=== PATIENT | male | born 1950 | race Caucasian/White ===

== ENCOUNTER 2017-11-11 12:19 | Emergency (ER) | payer MEDICARE, BC ==
[~2017-11-11] VITALS: Ht 177.8 cm; Wt 127.0 kg
[~2017-11-11 12:19] MED LIST: ADVIL PM LIQUI1 EACH PO; ADVIL200 MG NG; ALLOPURINOL100 MG PO; AMOX TR-K CLV1 EAC1 PO; BUTALB-ACETAMI1 EACH PO; GLUCOPHAGE500 MG PO; LISINOPRIL20 MG PO; MELOXICAM15 MG PO; NORVASC10 MG PO; PERCOCET 5-3251 EACH PO; PRILOSEC20 MG PO; TOPROL XL50 MG PO; UNITHROID175 MCG PO; VICODIN 5-3001 EACH PO; VICOPROFEN 2001 EACH PO; VITAMINS
--- OUTSIDE RECORDS SUMMARY | 2017-11-11 14:03 | XMS | Clinical Summary ---
Demographics + + + | Address | [address] | | | [place] [address] | + + + | Home Phone | | + + + | Preferred Language | Unknown | + + + | Marital Status | | + + + | Episcopalian Affiliation | CHR | + + + | Race | White | + + + | Ethnic Group | Not or | + + + Author + + + | Author | [facility] | + + + | Organization | [facility] | + + + | Address | Unknown | + + + | Phone | Unavailable | + + + Support +------+ +---------+ + | Name | Relationship | Address | Phone | +------+ +---------+ + ECON | Unknown | | +------+ +---------+ + Care Team Providers + +------+ + | Care Treating Machine Operator Name | Role | Phone | + +------+ + | Peter Styles MD | PP | | + +------+ + Source Comments HARLEY is fully live on both [facility] Ambulatory and [facility] InPatient.[facility] Allergies + + + + + + | Active Allergy | Reactions | Severity | Noted | Comments | | | | | Date | | + + + + + + | Codeine | Nausea/Vomiting | | 12/01/19 | | | | | | 08 | | + + + + + + | Hydrocodone-Acetamin | Headache | | 12/01/19 | | | ophen | | | 08 | | + + + + + + Current Medications + + +-------+---------+------+------+-------+ | Prescription | Sig. | Disp. | Refills | Star | End | Statu | | | | | | t | Date | s | | | | | | Date | | | + + +-------+---------+------+------+-------+ | levothyroxine 175 | take 1 tablet (175 | | | | | Activ | | mcg Oral Tablet | mcg) by oral route | | | | | e | | | once daily | | | | | | + + +-------+---------+------+------+-------+ | allopurinol 300 mg | take 1 tablet (300 | | | | | Activ | | Oral Tablet | mg) by oral route | | | | | e | | | once daily | | | | | | + + +-------+---------+------+------+-------+ | oxycodone | PRN | | | | | Activ | | (immediate release) | | | | | | e | | 5 mg Oral Tablet | | | | | | | + + +-------+---------+------+------+-------+ | | PRN | | | | | Activ | | hydrocodone-ibuprofe | | | | | | e | | n (VICOPROFEN) | | | | | | | | 7.5-200 mg Oral | | | | | | | | Tablet | | | | | | | + + +-------+---------+------+------+-------+ | Aspirin 81 mg Oral | 1 tab po qday | | | | | Activ | | Tablet | | | | | | e | + + +-------+---------+------+------+-------+ | lovastatin 40 mg | take 1 tablet (40 | | | | | Activ | | Oral Tablet | mg) by oral route | | | | | e | | | once daily with | | | | | | | | evening meal | | | | | | + + +-------+---------+------+------+-------+ Active Problems Not on file Family History + + +------+ + | Medical History | Relation | Name | Comments | + + +------+ + | Arthritis | Father | | | + + +------+ + | Heart Disease | Father | | | + + +------+ + | Stroke | Father | | | + + +------+ + | Arthritis | Mother | | | + + +------+ + | Diabetes | Mother | | | + + +------+ + + +------+--------+ + | Relation | Name | Status | Comments | + +------+--------+ + | Father | | | | + +------+--------+ + | Mother | | | | + +------+--------+ + Social History + +-------+ +--------+------+ | Tobacco Use | Types | Packs/Day | Years | Date | | | | | Used | | + +-------+ +--------+------+ | Never Smoker | | | | | + +-------+ +--------+------+ + + +---------+ + | Alcohol Use | Drinks/We | oz/Week | Comments | | | ek | | | + + +---------+ + | No | | | | + + +---------+ + + + + | Sex Assigned at | Date Recorded | | | | + + + | Not on file | | + + + Last Filed Vital Signs + + + + | Vital Sign | Reading | Time Taken | + + + + | Blood Pressure | - | - | + + + + | Pulse | 88 | 12/01/2007 1:10 PM PST | + + + + | Temperature | - | - | + + + + | Respiratory Rate | - | - | + + + + | Oxygen Saturation | - | - | + + + + | Inhaled Oxygen | - | - | | Concentration | | | + + + + | Weight | 124.7 kg (275 lb) | 12/01/2007 1:10 PM PST | + + + + | Height | 177.8 cm (5' 10") | 12/01/2007 1:10 PM PST | + + + + | Body Mass Index | 39.46 | 12/01/2007 1:10 PM PST | + + + + Plan of Treatment + + + + + | Health Maintenance | Due Date | Last Done | Comments | + + + + + | INFLUENZA VACCINE | | | | | (FLU SHOT) | 7 | | | + + + + + Results Not on filefrom Last 3 Months
--- OUTSIDE RECORDS SUMMARY | 2017-11-11 14:04 | XMS | Clinical Summary ---
Demographics + + + | Address | [address] | | | [place] [address] | + + + | Home Phone | | + + + | Preferred Language | Unknown | + + + | Marital Status | | + + + | Shinto Affiliation | CHR | + + + [...] Team Providers + +------+ + | Care Dental Intern Name | Role | Phone | + +------+ + | Peter Styles MD | PP | | + +------+ + Source Comments HARLEY is fully live on both [facility] Ambulatory and [facility] InPatient.[facility] Allergies + + + + + [...]
--- NOTE | 2017-11-11 23:12 | EKG ---
[facility] [address] [facility] [place] [address] Signed Atrial-paced rhythm with prolonged AV conduction Left anterior fascicular block Left ventricular hypertrophy with QRS widening Cannot rule out Septal infarct (cited on or before 28-OCT-2017) Abnormal ECG When compared with ECG of 28-OCT-2017 12:15, Electronic atrial pacemaker has replaced Sinus rhythm Questionable change in initial forces of Septal leads Confirmed by YANA MCCAULEY MD ([id number]) on 11/11/2017 11:11:55 PM Electronically Signed By: YANA MCCAULEY MD 11/11/17 2312 PATIENT NAME: BECKIE GARDNER Electrocardiogram DATE OF : 48 PHYSICIAN: YANA MCCAULEY MD REPORT #: [id number] REPORT IS CONFIDENTIAL AND NOT TO BE RELEASED WITHOUT AUTHORIZATION
== END 2017-11-11 14:50 | disposition home or self-care (01) ==
LOC: ED 12:19
DX: R00.2 Palpitations (principal); I10 Essential (primary) hypertension; Z95.0 Presence of cardiac pacemaker; Z88.5 Allergy status to narcotic agent; Z79.899 Other long term (current) drug therapy
CPT/HCPCS: 80053; 84484; 85025; 93005; 93010; 99284

== ENCOUNTER 2018-03-10 12:16 | Emergency (ER) | payer MEDICARE, BC ==
[~2018-03-10] VITALS: Ht 177.8 cm; Wt 127.0 kg
--- NOTE | 2018-03-12 10:59 | EKG ---
[facility] [address] [facility] [place] [address] Signed Sinus rhythm with 1st degree AV block Left ventricular hypertrophy with QRS widening Abnormal ECG When compared with ECG of 11-NOV-2017 12:32, Sinus rhythm has replaced Electronic atrial pacemaker Minimal criteria for Septal infarct are no longer present Confirmed by BRIDGETT CANSECO MD ([id number]) on 03/12/2018 10:59:36 AM Electronically Signed By: BRIDGETT CANSECO MD 03/12/18 1059 PATIENT NAME: BECKIE GARDNER Electrocardiogram DATE OF : 48 PHYSICIAN: BRIDGETT CANSECO MD REPORT #: [id number] REPORT IS CONFIDENTIAL AND NOT TO BE RELEASED WITHOUT AUTHORIZATION
== END 2018-03-10 17:13 | disposition home or self-care (01) ==
LOC: ED 12:16
DX: R42 Dizziness and giddiness (principal); I10 Essential (primary) hypertension; Z88.5 Allergy status to narcotic agent; Z79.899 Other long term (current) drug therapy; Z79.84 Long term (current) use of oral hypoglycemic drugs
CPT/HCPCS: 70450; 71045; 80053; 81001; 83880; 84484; 85025; 93005; 93010; 96360; 96361; 99284; J7030

== ENCOUNTER 2019-05-30 12:08 | Emergency (ER) | payer MEDICARE, BC ==
[~2019-05-30] VITALS: Ht 177.8 cm; Wt 122.5 kg
[2019-05-30] MEDS ORDERED: GLIPIZIDE ER5 MG PO (12:27)
[2019-05-30] MEDS ORDERED: OMEGA 3 1,0001 EACH PO (19:52)
== END 2019-05-31 13:25 ==
LOC: ED 12:08
DX: T14.91XA Suicide attempt, initial encounter (principal); I10 Essential (primary) hypertension; E11.9 Type 2 diabetes mellitus without complications; Z95.0 Presence of cardiac pacemaker; Z87.891 Personal history of nicotine dependence; Z88.5 Allergy status to narcotic agent; Z79.84 Long term (current) use of oral hypoglycemic drugs; Z79.899 Other long term (current) drug therapy
CPT/HCPCS: 70450; 80053; 80176; 81001; 84443; 85025; 94660; 99285-25; G0480

== ENCOUNTER 2020-01-16 17:07 | Emergency (ER) | payer MEDICARE, BC ==
[~2020-01-16] VITALS: Ht 177.8 cm; Wt 122.5 kg
[~2020-01-16 17:07] MED LIST changes: +GLIPIZIDE ER5 MG PO; +OMEGA 3 1,0001 EACH PO
--- OUTSIDE RECORDS SUMMARY | 2020-01-16 17:10 | XMS ---
PreManage Notification: BECKIE GARDNER Security Heel Lift Gouger Events No recent Security Events currently on file CRITERIA MET - Group Notification CARE PROVIDERS Nery DUMONT Internal Medicine Current PHONE: Unknown DAYRON POP Internal Medicine 06/03/2019-Current PHONE: Unknown Cristine has no Care Guidelines for this patient. Robin VISIT COUNT (12 MO.) 2 [facility] TOTAL 2 NOTE: Visits indicate total known visits. ED/UCC VISIT TRACKING (12 MO.) 01/16/2020 17:09 [facility] [place] TYPE: Emergency COMPLAINT: - PAIN IN BACK 05/30/2019 12:08 [facility] [place] TYPE: Emergency COMPLAINT: - MEDICAL CLEARANCE DIAGNOSES: - Personal history of nicotine dependence - Presence of cardiac pacemaker - group home (current) use of oral hypoglycemic drugs - Type 2 diabetes mellitus without complications - Suicide attempt, initial encounter - Other airline transport pilot (current) drug therapy - Suicidal ideations - Essential (primary) hypertension - Allergy status to narcotic agent status INPATIENT VISIT TRACKING (12 MO.) No inpatient visits to display in this time frame [email or web address]
--- NOTE | 2020-01-17 07:15 | EKG ---
[facility] [address] [facility] [place] [address] Signed Sinus rhythm with 1st degree AV block Left axis deviation Septal infarct , age undetermined Abnormal ECG When compared with ECG of 10-MAR-2018 12:31, Nonspecific T wave abnormality no longer evident in Inferior leads Confirmed by YANA MCCAULEY MD ([id number]) on 01/17/2020 7:15:18 AM Electronically Signed By: YANA MCCAULEY MD 01/17/20 0715 PATIENT NAME: BECKIE GARDNER Electrocardiogram DATE OF : 48 PHYSICIAN: YANA MCCAULEY MD REPORT #: [id number] REPORT IS CONFIDENTIAL AND NOT TO BE RELEASED WITHOUT AUTHORIZATION
== END 2020-01-16 19:32 | disposition home or self-care (01) ==
LOC: ED 17:07
DX: K85.90 Acute pancreatitis without necrosis or infection, unspecified (principal); I10 Essential (primary) hypertension; E11.9 Type 2 diabetes mellitus without complications; Z87.891 Personal history of nicotine dependence; Z79.899 Other long term (current) drug therapy
CPT/HCPCS: 74177; 80053; 81001; 83690; 85025; 93005; 93010; 99284-25; J2270

== ENCOUNTER 2022-06-05 15:01 | Emergency (ER) | payer MEDICARE, OTHER ==
[~2022-06-05] VITALS: Ht 177.8 cm; Wt 119.2 kg
--- OUTSIDE RECORDS SUMMARY | 2022-06-05 15:08 | XMS ---
PreManage Notification: BECKIE GARDNER Security Tuck Pointer Events No recent Security Events currently on file CRITERIA MET - Group Notification CARE PROVIDERS Nery DUMONT Internal Medicine Current PHONE: Unknown DAYRON POP Internal Medicine 06/03/2019-Current PHONE: Unknown Cristine has no Care Guidelines for this patient. Care History Medical/Surgical 01/17/2020 [facility] - Patient is currently established with [facility]. If patient is seen in the ED during business hours. Please contact CHWs at [facility]. Care Recommendation: If this patient has had 5 or more Emergency Department visits in the last 12 months.\T\nbsp; Patient will require education on the scope and purpose of the ED as an acute care provider not a Primary Care Provider and should not be utilized for chronic conditions.\T\nbsp; These are guidelines and the provider should exercise clinical judgment when providing care. E.D. VISIT COUNT (12 MO.) 1 [facility] TOTAL 1 NOTE: Visits indicate total known visits. ED/UCC VISIT TRACKING (12 MO.) 06/05/2022 15:01 [facility] [place] TYPE: Emergency COMPLAINT: - BEE STING INPATIENT VISIT TRACKING (12 MO.) No inpatient visits to display in this time frame [id number]
[2022-06-05] MEDS ORDERED: EPIN0.3P IM (15:22)
[2022-06-05] MEDS ORDERED: PREDNISONE20 MG PO (16:02)
[2022-06-05] MEDS ORDERED: EPIN0.3P INJ (16:02)
[2022-06-05] MEDS ORDERED: BENADRYL ALLERG25 MG PO (16:02)
== END 2022-06-05 15:58 | disposition home or self-care (01) ==
LOC: ED 15:01
DX: T63.441A Toxic effect of venom of bees, accidental (unintentional), initial encounter (principal); I10 Essential (primary) hypertension; E11.9 Type 2 diabetes mellitus without complications; M10.9 Gout, unspecified; Z88.5 Allergy status to narcotic agent; Z88.6 Allergy status to analgesic agent; Z79.899 Other long term (current) drug therapy; Z79.84 Long term (current) use of oral hypoglycemic drugs
CPT/HCPCS: 99282

== ENCOUNTER 2023-08-03 12:14 | Emergency (ER) | payer MEDICARE, OTHER ==
[~2023-08-03] VITALS: Ht 177.8 cm; Wt 100.2 kg
[~2023-08-03 12:14] MED LIST changes: +ADVIL PM CAPLE1 EACH PO; +ALPHA LIPOIC A100 MG PO; +BENADRYL ALLERG25 MG PO; +CEFDINIR300 MG PO; +COLCHICINE0.6 M1 PO; +CRESTOR40 MG NG; +CYCLOBENZAPRINE10 MG PO; +ELIQUIS5 MG PO; +EPIN0.3P IM; +EPIN0.3P INJ; +EZETIMIBE10 MG PO; +FEROSUL325 MG PO; +FLOMAX0.4 MG PO; +FUROSEMIDE40 MG PO; +GLIPIZIDE5 MG PO; +MAG-OXIDE400 MG PO; +METOPROLOL SUCC50 MG PO; +NITROGLYCERIN0.4 MG SL; +OXYCODONE HCL5 MG PO; +PACERONE400 MG PO; +POTASSIUM CHLO20 ME1 PO; +PREDNISONE20 MG PO; +PRILOSEC OTC20 MG PO; +ROSUVASTATIN CAL5 MG PO; +SILDENAFIL20 MG PO; +VAZALORE81 MG PO; +VIT C-ROSE HIP500 MG PO; +VITAMIN D310 MC4 PO; +WEGOVY1 MG/0.5 M SQ; +[UNRECOGNIZED DRUG - OTHER] PO
--- OUTSIDE RECORDS SUMMARY | 2023-08-03 12:16 | XMS ---
PreManage Notification: BECKIE GARDNER Security Green Tire Inspector Events No recent Security Events currently on file CRITERIA MET - 6 ED Visits in 6 Months - Group Notification - [facility] - 2 Visits in 30 Days - [facility] - 3 Facilities in 90 Days CARE PROVIDERS DAYRON POP Internal Medicine 06/03/2019-Current PHONE: Unknown [facility] [employer] \F\ [facility] PHONE: [phone] Nery DUMONT Internal Medicine Current PHONE: Unknown ISAMAR RUELAS Internal Medicine Current PHONE: [phone] Cristine has no Care Guidelines for this patient. Care History Medical/Surgical 01/17/2020 [facility] - Patient is currently established with [facility]. If patient is seen in the ED during business hours. Please contact CHWs at [facility]. Care Recommendation: If this patient has had [...] providing care. E.D. VISIT COUNT (12 MO.) 6 [facility] 2 [facility] TOTAL 9 NOTE: Visits indicate total known visits. ED/UCC VISIT TRACKING (12 MO.) 08/03/2023 12:15 [facility] [place] TYPE: Emergency COMPLAINT: - URINE PROBLEM 07/26/2023 13:11 [facility] [place] TYPE: Emergency COMPLAINT: - UTI DIAGNOSES: - Allergy status to narcotic agent - Bee allergy status - Essential (primary) hypertension - Exposure to other specified factors, initial encounter - Hormone replacement therapy - terminal make up operator (current) use of aspirin - Personal history of transient ischemic attack (TIA), and cerebral infarction without residual deficits - Presence of aortocoronary bypass graft - Presence of cardiac pacemaker - Sprain of unspecified ligament of unspecified ankle, initial encounter - Type 2 diabetes mellitus without complications - Urgency of urination - Urinary tract infection, site not specified 06/22/2023 06:38 [facility] [place] TYPE: Emergency COMPLAINT: - WEAKNESS DIAGNOSES: - Abnormal weight gain - Allergy status to narcotic agent - Allergy status to other drugs, medicaments and biological substances - Bee allergy status - Contact with and (suspected) exposure to COVID-19 - Elevated blood-pressure reading, without diagnosis of hypertension - Essential (primary) hypertension - Hormone replacement therapy - senior care (current) use of aspirin - terminal make up operator (current) use of oral hypoglycemic drugs - Nausea with vomiting, unspecified - Other halfway (current) drug therapy - Personal history of transient ischemic attack (TIA), and cerebral infarction without residual deficits - Presence of cardiac pacemaker - Type 2 diabetes mellitus without complications - Unspecified kidney failure [facility]17[facility]2023 15[facility]: Emergency DIAGNOSES: - Hiccough - Urinary tract infection, site not specified - Vomiting, unspecified - Weakness - Emesis - fell, bottom pain - Weakness 06/16/2023 17:40 [facility] [place] TYPE: Emergency COMPLAINT: - VOMITING DIAGNOSES: - Allergy status to narcotic agent - Bee allergy status - Contact with and (suspected) exposure to COVID-19 - Essential (primary) hypertension - senior care (current) use of anticoagulants - senior care (current) use of oral hypoglycemic drugs - Other longshore equipment operator (current) drug therapy - Presence of cardiac pacemaker - Type 2 diabetes mellitus without complications - Urinary tract infection, site not specified - Vomiting, unspecified 05/29/2023 22:13 [facility] TYPE: Emergency DIAGNOSES: - Altered mental status, unspecified - Other specified postprocedural states - Altered Mental Status 04/28/2023 09:56 [facility] [place] TYPE: Emergency COMPLAINT: - FALL, LEG PAIN DIAGNOSES: - Allergy status to narcotic agent - Bee allergy status - Contusion of lower back and pelvis, initial encounter - Essential (primary) hypertension - terminal make up operator (current) use of aspirin - senior care (current) use of oral hypoglycemic drugs - Other halfway (current) drug therapy - Other [facility] area as the place of occurrence of the external cause - Strain of muscle, fascia and tendon of lower back, initial encounter - Type 2 diabetes mellitus without complications - Unspecified fall, initial encounter 04/23/2023 13:12 [facility] TYPE: Emergency DIAGNOSES: - Shortness of breath - Dizziness - Hypertension - Shortness of Breath 04/14/2023 07:[address] [facility] [place] TYPE: Emergency COMPLAINT: - HIGH B/P, SOB DIAGNOSES: - Allergy status to narcotic agent - Allergy status to other drugs, medicaments and biological substances - Bee allergy status - Essential (primary) hypertension - terminal make up operator (current) use of aspirin - senior care (current) use of oral hypoglycemic drugs - Other halfway (current) drug therapy - Shortness of breath - Type 2 diabetes mellitus without complications INPATIENT VISIT TRACKING (12 MO.) [facility] Rehab DIAGNOSES: - Acute kidney failure, unspecified - Acute pancreatitis without necrosis or infection, unspecified - Atherosclerotic heart disease of [place] coronary artery without angina pectoris - Essential (primary) hypertension - Hyperlipidemia, unspecified - Other malaise - Personal history of transient ischemic attack (TIA), and cerebral infarction without residual deficits - Presence of aortocoronary bypass graft - Presence of cardiac pacemaker - Type 2 diabetes mellitus without complications - Pancreatitis 06/22/2023 14:35 [facility] [place] TYPE: Surgical Services DIAGNOSES: - Acute kidney failure, unspecified - Acute pancreatitis without necrosis or infection, unspecified - Atherosclerotic heart disease of [place] coronary artery without angina pectoris - Nausea with vomiting, unspecified - Type 2 diabetes mellitus with diabetic nephropathy - Renal Failure, SOB, Generalized Weakness 06/03/2023 14:11 [facility] Rudolph Galdamez CHARLES (Rudolph Galdamez) TYPE: Inpatient Rehab DIAGNOSES: - Acute on chronic diastolic (congestive) heart failure - Anemia, unspecified - Essential (primary) hypertension - Hyperlipidemia, unspecified - Metabolic encephalopathy - Non-ST elevation (NSTEMI) myocardial infarction - Obesity, unspecified - Obstructive sleep apnea (adult) (pediatric) - Other malaise - Other reduced mobility - Other specified health status - Personal history of transient ischemic attack (TIA), and cerebral infarction without residual deficits - Presence of aortocoronary bypass graft - Presence of cardiac pacemaker - Retention of urine, unspecified - Type 2 diabetes mellitus without complications - Unsteadiness on feet - CABG 05/29/2023 22:13 [facility] TYPE: Internal Medicine DIAGNOSES: - Altered mental status, unspecified - Disorientation, unspecified - Other specified postprocedural states 05/21/2023 06:49 [facility] TYPE: Internal Medicine DIAGNOSES: - Acute kidney failure, unspecified - Atherosclerotic heart disease of [place] coronary artery without angina pectoris - Presence of aortocoronary bypass graft 05/08/2023 10:54 [facility] TYPE: Cardiology DIAGNOSES: - Atherosclerotic heart disease of [place] coronary artery with unstable angina pectoris - Essential (primary) hypertension - Presence of cardiac pacemaker - Type 2 diabetes mellitus without complications - Unstable angina [id number]
[2023-08-03 12:33] LABS: BILIRUBIN, URINE NEGATIVE (negative); BLOOD/HGB, URINE SMALL (Negative); KETONE, URINE TRACE (Negative); LEUK ESTERASE, URINE MODERATE (negative); NITRITE, URINE NEGATIVE (negative)
[2023-08-03 12:41] LABS: BACTERIA, URINE 1+ /hpf (negative); CASTS, URINE NONE SEEN \\lpf; COLLECTION TYPE, URINE CLEAN CATCH; CRYSTALS, URINE NONE SEEN (0-1+); EPITHELIAL CELLS, URINE 0 /lpf (0-1+); RED BLOOD CELLS, URINE 0-1 /hpf (0-5); REFLEX CULTURE, URINE Yes (No); WHITE BLOOD CELLS, URINE >50 /HPF (0-5)
[2023-08-03 12:50] LABS: BASOPHILS 0.6 % (0-2); EOSINOPHILS 3.5 % (0-6); HEMATOCRIT 37.8 % (35.0-50.0); HEMOGLOBIN 12.5 g/dL (12.0-18.0); MCH 28.4 (27-36); NEUTROPHILS 71.9 % (39-80); PLATELET COUNT 312 K/uL (140-440); RBC 4.39 M/ul (4.3-5.7); RDW 16.5 (10.5-15.0)
[2023-08-03 13:05] LABS: ALBUMIN 3.2 g/dL (3.4-5.0); ALBUMIN/GLOBULIN RATIO 0.89 (1.1-2.4); BILIRUBIN, TOTAL 0.4 ng/dL (0.2-1.0); BUN/CREATININE RATIO 10.89 (6.0-28.6); CREATININE, SERUM 1.01 mg/dL (0.70-1.30); PROTEIN, TOTAL 6.8 g/dL (6.4-8.2)
[2023-08-03] MEDS ORDERED: PYRIDIUM200 MG PO (15:22)
[2023-08-03 15:29] VITALS: BP 148/81
== END 2023-08-03 15:29 | disposition home or self-care (01) ==
LOC: ED 12:14
PROVIDERS: Emergency Medicine
DX: N30.10 Interstitial cystitis (chronic) without hematuria (principal); I10 Essential (primary) hypertension; E11.9 Type 2 diabetes mellitus without complications; Z91.030 Bee allergy status; Z88.5 Allergy status to narcotic agent; Z88.8 Allergy status to other drugs, medicaments and biological substances; Z79.82 Long term (current) use of aspirin; Z79.84 Long term (current) use of oral hypoglycemic drugs; Z79.899 Other long term (current) drug therapy; Z79.890 Hormone replacement therapy
CPT/HCPCS: 36415; 74177; 80053; 81001; 85025; 87088; 99284-25; J7040; Q9967

== ENCOUNTER 2023-12-04 12:38 | Emergency (ER) | payer MEDICARE, OTHER ==
[~2023-12-04] VITALS: Ht 177.8 cm; Wt 103.1 kg
[~2023-12-04 12:38] MED LIST changes: +CIPRO500 MG PO; +PYRIDIUM200 MG PO
[2023-12-04 13:09] LABS: BILIRUBIN, URINE NEGATIVE (negative); BLOOD/HGB, URINE LARGE (Negative); KETONE, URINE NEGATIVE (Negative); LEUK ESTERASE, URINE MODERATE (negative); NITRITE, URINE NEGATIVE (negative); PH, URINE 5.5 (5-7)
[2023-12-04 13:16] LABS: BACTERIA, URINE NONE SEEN /hpf (negative); CASTS, URINE NONE SEEN \\lpf; COLLECTION TYPE, URINE CLEAN CATCH; CRYSTALS, URINE NONE SEEN (0-1+); EPITHELIAL CELLS, URINE 0 /lpf (0-1+); REFLEX CULTURE, URINE Yes (No); WHITE BLOOD CELLS, URINE >50 /HPF (0-5)
[2023-12-04 13:21] LABS: BASOPHILS 0.6 % (0-2); EOSINOPHILS 3.2 % (0-6); HEMATOCRIT 43.1 % (35.0-50.0); HEMOGLOBIN 13.9 g/dL (12.0-18.0); LYMPHOCYTES 22.6 % (24-44); MCH 26.9 (27-36); MCHC 32.4 g/dl (30-36); MCV 83.2 fl (81-99); MONOCYTES 9.7 % (0-12); NEUTROPHILS 63.9 % (39-80); PLATELET COUNT 254 K/uL (140-440); RBC 5.18 M/ul (4.3-5.7); RDW 17.4 (10.5-15.0)
[2023-12-04 13:43] LABS: ALBUMIN 3.3 g/dL (3.4-5.0); ALBUMIN/GLOBULIN RATIO 0.75 (1.1-2.4); ANION GAP 14.3 (7-21); BILIRUBIN, TOTAL 0.3 ng/dL (0.2-1.0); BUN/CREATININE RATIO 18.32 (6.0-28.6); CALCIUM 10.3 mg/dL (8.5-10.1); CREATININE, SERUM 1.31 mg/dL (0.70-1.30); MAGNESIUM 1.8 mg/dL (1.8-2.4); POTASSIUM 4.3 mmol/L (3.5-5.1); PROTEIN, TOTAL 7.7 g/dL (6.4-8.2)
[2023-12-04] MEDS ORDERED: FLUCONAZOLE150 MG PO (14:11)
[2023-12-04] MEDS ORDERED: MACROBID 100 M100 MG PO (14:11)
[2023-12-04 14:17] VITALS: BP 148/90
--- NOTE | 2023-12-07 23:44 | EKG ---
[facility] [address] [facility] [place] [address] Signed Unusual P axis, possible ectopic atrial rhythm First degree AV block Left anterior fascicular block Nonspecific ST and T wave abnormality Anteroseptal infarct (cited on or before 16-JUN-2023) Abnormal ECG Confirmed by Magdy Machuca M.D. ([id number]) on 12/07/2023 11:44:15 PM Electronically Signed By: MAGDY MACHUCA MD 12/07/23 2344 PATIENT NAME: BECKIE GARDNER Electrocardiogram DATE OF : 48 PHYSICIAN: MAGDY MACHUCA MD REPORT #: [id number] REPORT IS CONFIDENTIAL AND NOT TO BE RELEASED WITHOUT AUTHORIZATION
== END 2023-12-04 14:17 | disposition home or self-care (01) ==
LOC: ED 12:38
PROVIDERS: Family Medicine
DX: N30.90 Cystitis, unspecified without hematuria (principal); I11.0 Hypertensive heart disease with heart failure; E11.9 Type 2 diabetes mellitus without complications; I50.9 Heart failure, unspecified; M10.9 Gout, unspecified; Z91.030 Bee allergy status; Z88.5 Allergy status to narcotic agent; Z79.899 Other long term (current) drug therapy; Z79.82 Long term (current) use of aspirin; Z79.84 Long term (current) use of oral hypoglycemic drugs
CPT/HCPCS: 36415; 71045; 74176; 80053; 81001; 83735; 83880; 84484; 85025; 85379; 87088; 93005; 93010; 99285-25

== ENCOUNTER 2024-05-31 07:20 | Day surgery (SDC) | payer MEDICARE, OTHER ==
--- NOTE | 2024-05-25 10:51 | NUR ---
CALL INTO PT THIS TIME AND NO ANSWER, LEFT MESSAGE AT [phone]. WILL TRY AGAIN LATER TODAY.
[~2024-05-31] VITALS: Ht 177.8 cm; Wt 111.4 kg
[~2024-05-31 07:20] MED LIST changes: +CEFAZOLIN SODIUM 2 GM/20 ML SYR IV SCH; +FLUCONAZOLE150 MG PO; +IBLOOD GLUCOSE TEST STRIP 1 EA TEST VI PRN; +LACTATED RINGER'S 1,000 ML IV SCH; +LIDOCAINE HCL 1% 5 ML SDV INJ ONE; +MACROBID 100 M100 MG PO; +MULTI VITAMIN1 EACH PO; +SEROQUEL50 MG PO; +TOPROL XL100 MG PO
[2024-05-31 07:40] VITALS: BP 165/86
[2024-05-31] MEDS ORDERED: TAMSULOSIN HCL0.4 MG PO (07:47)
--- NOTE | 2024-05-31 10:40 | NUR ---
INTO PTS ROOM FOR HOURLY ROUNDING. REMAINS AT PTS BEDSIDE. URINAL EMPTIES OF 200 ML OF DARK YELLOW URINE. PT AND DENY ANY FURTHER NEEDS OR QUESTIONS AT THIS TIME. CALL LIGHT WITHIN REACH, BED IN LOW POSITION WITH WHEELS LOCKED.
--- NOTE | 2024-05-31 11:37 | NUR ---
INTO PTS ROOM FOR HOURLY ROUNDING. PTS URINAL EMPTIED OF APPROX 200ML OF YELLOW URINE. REMAINS AT BEDSIDE. CALL LIGHT WITHIN REACH. BED IN LOW POSITION WITH WHEELS LOCKED. DR. MARRERO INTO SEE RESIDENT AND MARKED OPERATIVE SITE. PT DENIES ANY FURTHER NEEDS OR QUESTIONS AT THIS TIME.
[2024-05-31] MEDS ORDERED: LIDOCAINE HCL 0.5% 50 ML SDV ONE (11:43)
[2024-05-31] MEDS ORDERED: MIDAZOLAM HCL 2 MG/2 ML VIAL ONE (11:58)
[2024-05-31] MEDS ORDERED: TRAMADOL HCL 50 MG TAB PO PRN (12:00)
[2024-05-31] MEDS ORDERED: TRAMADOL HCL50 MG PO (12:19)
--- NOTE | 2024-05-31 12:35 | NUR ---
05/31/24 1235 Pretty Villanueva 1219- PT ARRIVES TO PACU REACTIVE TO VOICE. PT DOES NOT ANSWER QUESTIONS AND FALLS RIGHT BACK TO SLEEP. RESP EVEN AND UNLABORED. OXYGEN SAT MID TO HIGH 90'S ON RA. ICE PACK PLACED TO PT'S RIGHT WRIST WITH DRESSING BARRIER. 1227- PT IS IN A SINUS RHYTHM BUT IS PERIODICALLY BEING ATRIAL AND VENTRICULAR PACED BY HIS PACE MAKER. 1233- PT IS MORE ALERT AND WAKING ON HIS OWN. PT DENIES ANY PAIN OR NAUSEA.
[2024-05-31 12:58] VITALS: BP 162/91
--- NOTE | 2024-06-02 07:02 | OR ---
[facility] [address] [place], [place] [address] Signed DATE OF OPERATION: 05/31/2024 SURGEON: Lissy Briones MD PREOPERATIVE DIAGNOSIS: Carpal tunnel syndrome, right. POSTOPERATIVE DIAGNOSIS: Carpal tunnel syndrome, right. PROCEDURE PERFORMED: Right carpal tunnel release. WINDING INSPECTOR AND TESTER: Yu Tamez PA-C. ANESTHESIA: [place] block. TOURNIQUET TIME: 20 minutes. BRIEF HISTORY: Beckie is a 74-year-old with severe carpal tunnel in his right hand. Risks, benefits, and alternatives of surgery were discussed with him and he elected to proceed. DESCRIPTION OF PROCEDURE: Once consent was obtained, he was taken to the operating room. After adequate anesthesia, he was placed on the day surgery bed with a hand table. The arm was prepped and draped in the standard sterile fashion. The hand was approached through a standard 1.5 cm incision in the distal wrist crease. This was carried through the skin and subcutaneous tissue. All bleeders were cauterized as we went. The transverse carpal ligament was dissected free of dense overlying soft tissue. Under direct loupe magnification, it was released proximally a cm and distally to the distal extent. Again, this was done under direct loupe magnification. This was palpated using a Tabiona and found to be completely released. The wound was copiously irrigated with normal saline and closed with 3-0 nylon and injected with 7 mL of 0.25% plain Marcaine. The wound was dressed with bacitracin, Adaptic and ABD with an Jose L wrap. He tolerated the procedure well. All sponge, needle, and instrument counts were correct. Electronically Signed By: LISSY BRIONES MD 06/02/24 0702 PATIENT NAME: BECKIE GARDNER OPERATIVE REPORT DATE OF : 48 REPORT #: [id number] PHYSICIAN: LISSY BRIONES MD PCP: DAYRON POP MD REPORT IS CONFIDENTIAL AND NOT TO BE RELEASED WITHOUT AUTHORIZATION [address] [address] Signed Lissy Briones MD BA/MODL /[id number] Copies: ~ Electronically Signed By: LISSY BRIONES MD 06/02/24 0702 PATIENT NAME: BECKIE GARDNER OPERATIVE REPORT DATE OF : 48 REPORT #: [id number] PHYSICIAN: LISSY BRIONES MD PCP: DAYRON POP MD REPORT IS CONFIDENTIAL AND NOT TO BE RELEASED WITHOUT AUTHORIZATION
== END 2024-05-31 13:08 | disposition home or self-care (01) ==
LOC: DS 07:20
PROVIDERS: ATTEND Specialist
PROC: 01N50ZZ Release Median Nerve, Open Approach (ICD-10-PCS; principal; 2024-05-31 10:50)
DX: G56.01 Carpal tunnel syndrome, right upper limb (principal); E11.9 Type 2 diabetes mellitus without complications; I11.0 Hypertensive heart disease with heart failure; I50.89 Other heart failure; N19 Unspecified kidney failure; E07.9 Disorder of thyroid, unspecified; Z86.73 Personal history of transient ischemic attack (TIA), and cerebral infarction without residual deficits; Z87.891 Personal history of nicotine dependence; Z79.84 Long term (current) use of oral hypoglycemic drugs; Z79.82 Long term (current) use of aspirin; Z79.890 Hormone replacement therapy; Z79.899 Other long term (current) drug therapy; Z88.5 Allergy status to narcotic agent
CPT/HCPCS: 01810; J0690; J2250; J7121

== ENCOUNTER 2025-06-27 14:39 | Emergency (ER) | payer MEDICARE, OTHER ==
[~2025-06-27] VITALS: Ht 177.8 cm; Wt 107.9 kg
[~2025-06-27 14:39] MED LIST changes: -CEFAZOLIN SODIUM 2 GM/20 ML SYR IV SCH; -IBLOOD GLUCOSE TEST STRIP 1 EA TEST VI PRN; -LACTATED RINGER'S 1,000 ML IV SCH; -LIDOCAINE HCL 1% 5 ML SDV INJ ONE; +TAMSULOSIN HCL0.4 MG PO; +TRAMADOL HCL50 MG PO
[2025-06-27] MEDS ORDERED: SODIUM CHLORIDE 0.9% 1,000 ML IV ONE (15:00)
[2025-06-27 15:05] LABS: BASOPHILS 0.5 % (0.2-1.2); EOSINOPHILS 1.8 % (0.8-7.0); LYMPHOCYTES 17.0 % (21.8-53.1); MCH 29.1 PG (25.7-32.2); MCHC 33.3 g/dL (32.3-36.5); MCV 87.4 fL (79.0-92.2); MONOCYTES 8.9 % (5.3-12.2); NEUTROPHILS 71.3 % (34.0-67.9); RBC 5.39 M/uL (4.63-6.08)
[2025-06-27] MEDS ORDERED: AMIODARONE HCL200 MG PO (15:12)
[2025-06-27] MEDS ORDERED: IRBESARTAN75 MG PO (15:12)
[2025-06-27 15:22] LABS: ALT (SGPT) 22.0 U/L (14-59); AST (SGOT) 19.0 U/L (15-37); GLOMERULAR FILTRATION RATE,EST 48.0 mL/min (>60); PROTEIN, TOTAL 7.7 g/dL (6.4-8.2); UREA NITROGEN 24.0 mg/dL (7-18)
[2025-06-27 15:58] LABS: BLOOD/HGB, URINE NEGATIVE (Negative); KETONE, URINE NEGATIVE (Negative); LEUK ESTERASE, URINE NEGATIVE (negative); NITRITE, URINE NEGATIVE (negative)
[2025-06-27 16:07] LABS: BACTERIA, URINE NONE SEEN /hpf (negative); CASTS, URINE NONE SEEN \\lpf; CRYSTALS, URINE NONE SEEN (0-1+); EPITHELIAL CELLS, URINE SQUAMOUS 1+ /lpf (0-1+); REFLEX CULTURE, URINE No (No)
[2025-06-27 18:32] VITALS: BP 169/91
--- NOTE | 2025-06-28 07:28 | EKG ---
[facility] [address] [facility] [place] [address] Signed AV dual-paced rhythm with prolonged AV conduction Abnormal ECG When compared with ECG of 17-MAY-2024 11:40, Electronic ventricular pacemaker has replaced Sinus rhythm Confirmed by LARRY HEADLEY MD ([id number]) on 06/28/2025 7:28:51 AM Electronically Signed By: LARRY HEADLEY 06/28/25 0728 PATIENT NAME: BECKIE GARDNER Electrocardiogram DATE OF : 48 PHYSICIAN: LARRY HEADLEY REPORT #: [id number] REPORT IS CONFIDENTIAL AND NOT TO BE RELEASED WITHOUT AUTHORIZATION
[2025-06-28] MEDS ORDERED: MAGNESIUM OXID400 M1 PO ×2 (23:54)
[2025-06-28] MEDS ORDERED: ONDANSETRON ODT4 MG PO ×2 (23:54)
== END 2025-06-27 18:34 | disposition home or self-care (01) ==
LOC: ED 14:39
PROVIDERS: Emergency Medicine
DX: R55 Syncope and collapse (principal); E11.9 Type 2 diabetes mellitus without complications; I11.0 Hypertensive heart disease with heart failure; I50.9 Heart failure, unspecified; Z86.73 Personal history of transient ischemic attack (TIA), and cerebral infarction without residual deficits; Z95.0 Presence of cardiac pacemaker; Z91.030 Bee allergy status; Z88.5 Allergy status to narcotic agent; Z88.8 Allergy status to other drugs, medicaments and biological substances; Z95.1 Presence of aortocoronary bypass graft; Z96.641 Presence of right artificial hip joint; Z79.899 Other long term (current) drug therapy; Z79.82 Long term (current) use of aspirin; Z79.890 Hormone replacement therapy; Z79.84 Long term (current) use of oral hypoglycemic drugs
CPT/HCPCS: 36415; 71045; 80053; 81001; 83605; 84484; 85025; 93005; 93010; 96360; 99284-25; J7030

== ENCOUNTER 2025-06-28 22:31 | Emergency (ER) | payer MEDICARE, OTHER ==
[~2025-06-28] VITALS: Ht 177.8 cm; Wt 110.0 kg
[~2025-06-28 22:31] MED LIST changes: +AMIODARONE HCL200 MG PO; +IRBESARTAN75 MG PO
[2025-06-28 23:03] LABS: BLOOD/HGB, URINE TRACE-I (Negative); KETONE, URINE NEGATIVE (Negative); LEUK ESTERASE, URINE NEGATIVE (negative); NITRITE, URINE NEGATIVE (negative)
[2025-06-28 23:09] LABS: EPITHELIAL CELLS, URINE SQUAMOUS 1+ /lpf (0-1+)
[2025-06-28 23:10] LABS: BACTERIA, URINE RARE /hpf (negative); CASTS, URINE NONE SEEN \\lpf; CRYSTALS, URINE NONE SEEN (0-1+); REFLEX CULTURE, URINE No (No)
[2025-06-28 23:23] LABS: BASOPHILS 0.3 % (0.2-1.2); EOSINOPHILS 0.2 % (0.8-7.0); LYMPHOCYTES 3.2 % (21.8-53.1); MCH 29.4 PG (25.7-32.2); MCHC 33.7 g/dL (32.3-36.5); MCV 87.1 fL (79.0-92.2); MONOCYTES 5.9 % (5.3-12.2); NEUTROPHILS 90.0 % (34.0-67.9); RBC 5.58 M/uL (4.63-6.08)
[2025-06-28 23:40] LABS: ALT (SGPT) 28.0 U/L (14-59); AST (SGOT) 17.0 U/L (15-37); GLOMERULAR FILTRATION RATE,EST 51.0 mL/min (>60); PROTEIN, TOTAL 8.1 g/dL (6.4-8.2); UREA NITROGEN 22.0 mg/dL (7-18)
[2025-06-28] MEDS ORDERED: MAGNESIUM SULFATE 2 GM/50 ML BAG IV ONE (23:45)
[2025-06-28] MEDS ORDERED: SODIUM CHLORIDE 0.9% 500 ML IV PRN (23:45)
[2025-06-28 23:49] LABS: INFLUENZA B NAA NEGATIVE (NEGATIVE); RESPIRATORY SYNCYTIAL VIR NAA NEGATIVE (NEGATIVE)
[2025-06-28] MEDS ORDERED: ONDANSETRON ODT4 MG PO ×2 (23:54)
[2025-06-28] MEDS ORDERED: MAGNESIUM OXID400 M1 PO ×2 (23:54)
[2025-06-29 00:53] VITALS: BP 138/74
== END 2025-06-29 01:16 | disposition home or self-care (01) ==
LOC: ED 22:31
PROVIDERS: Family Medicine
DX: E86.0 Dehydration (principal); E83.42 Hypomagnesemia; E11.9 Type 2 diabetes mellitus without complications; I11.0 Hypertensive heart disease with heart failure; I50.9 Heart failure, unspecified; Z95.0 Presence of cardiac pacemaker; Z95.1 Presence of aortocoronary bypass graft; Z88.5 Allergy status to narcotic agent; Z91.030 Bee allergy status; Z79.84 Long term (current) use of oral hypoglycemic drugs; Z79.890 Hormone replacement therapy; Z79.82 Long term (current) use of aspirin; Z79.899 Other long term (current) drug therapy
CPT/HCPCS: 36415; 80053; 81001; 83690; 83735; 85025; 87502; 96365; 99284-25; J3475; J7040; U0002

== ENCOUNTER 2025-07-22 13:09 | Emergency (ER) | payer MEDICARE, OTHER ==
[~2025-07-22] VITALS: Ht 177.8 cm; Wt 102.5 kg
--- OUTSIDE RECORDS SUMMARY | ~2025-07-22 | XMS | Continuity of Care Document ---
Demographics + + + | Address | [address] | | | [place] [address] | + + + | Preferred Language | Unknown | + + + | Marital Status | | + + + | Temple Affiliation | Unknown | + + + | Race | White | + + + | Ethnic Group | Not or | + + + Author + + + | Author | [facility] | + + + | Organization | [facility] | + + + | Address | [address] | | | [place] [address] | + + + | Phone | | + + + Care Team Providers + + + + | Care Triple Air Valve Tester Name | Role | Phone | + + + + Unavailable | Unavailable | + + + + Unavailable | Unavailable | + + + + Allergies and Intolerances + + + + + + | date | description | facility | reaction | severity | + + + + + + | 2025-06-27 | Wasp venom | [facility] | Anaphylaxis | Severe | | 00:00 | | [facility] | | | + + + + + + | 2025-06-27 | Codeine | [facility] - | Vomiting | Moderate | | 00:00 | | [facility] | | | + + + + + + | 2025-06-27 | codeine | [facility] - | (no reaction) | (no severity) | | 00:00 | | [facility] | | | + + + + + + | 2025-06-27 | Hydrocodone | [facility] - | (no reaction) | Mild | | 00:00 | | [facility] | | | + + + + + + | 2025-06-27 | Fenofibrate | [facility] - | (no reaction) | Moderate | | 00:00 | | [facility] | | | + + + + + + | 2025-06-27 | Codeine | [facility] - | Vomiting | Moderate | | 00:00 | | [facility] | | | + + + + + + | 2025-06-27 | Hydrocodone | [facility] - | (no reaction) | Mild | | 00:00 | | [facility] | | | + + + + + + | 2025-06-27 | hydrocodone | [facility] - | (no reaction) | (no severity) | | 00:00 | | [facility] | | | + + + + + + | 2025-06-27 | Hydrocodone | [facility] - | (no reaction) | Mild | | 00:00 | | [facility] | | | + + + + + + | 2025-06-27 | Fenofibrate | [facility] - | (no reaction) | Moderate | | 00:00 | | [facility] | | | + + + + + + | 2025-06-27 | fenofibrate | [facility] - | (no reaction) | (no severity) | | 00:00 | | [facility] | | | + + + + + + | 2025-06-27 | Codeine | [facility] - | Vomiting | Moderate | | 00:00 | | [facility] | | | + + + + + + | 2025-06-27 | Wasp venom | [facility] - | Anaphylaxis | Severe | | 00:00 | | [facility] | | | + + + + + + | 2025-06-27 | venom-wasp | [facility] - | (no reaction) | (no severity) | | 00:00 [facility] | | | + + + + + + | 2025-06-27 | Fenofibrate | [facility] - | (no reaction) | Moderate | | 00:00 | | [facility] | | | + + + + + + Encounters No information. Functional Status No information. Immunizations + + + + | date | description | facility | + + + + | (no date) | No vaccine administered | [facility] | | | | [facility] | + + + + Medications + + + + | date | description | facility | + + + + | 2025-06-28 00:00 | ONDANSETRON | [facility] | | | | [facility] | + + + + | 2025-06-29 00:00 | ONDANSETRON | [facility] | | | | [facility] | + + + + | 2025-06-28 00:00 | ondansetron 4 MG | [facility] | | | Disintegrating Oral Tablet | [facility] | + + + + | 2025-06-29 00:00 | ondansetron 4 MG | [facility] | | | Disintegrating Oral Tablet | [facility] | + + + + | (no date) | APIXABAN | [facility] | | | | [facility] | + + + + | (no date) | apixaban 5 MG Oral Tablet | [facility] | | | [Eliquis] | [facility] | + + + + | (no date) | MELOXICAM | [facility] | | | | [facility] | + + + + | (no ) | meloxicam 15 MG Oral | [facility] | | | Tablet | [facility] | + + + + | (no ) | Microencapsulated | [facility] | | | potassium chloride 20 MEQ | [facility] | | | Extended Release | | + + + + | (no ) | POTASSIUM CHLORIDE | [facility] | | | | [facility] | + + + + | (no ) | MAGNESIUM OXIDE | [facility] | | | | [facility] | + + + + | 2025-06-28 00:00 | Magnesium Oxide | [facility] | | | | [facility] | + + + + | 2025-06-29 00:00 | Magnesium Oxide | [facility] | | | | [facility] | + + + + | () | magnesium oxide 400 MG | [facility] | | | Oral Tablet | [facility] | + + + + | 2025-06-28 00:00 | magnesium oxide 400 MG | [facility] | | | Oral Tablet | [facility] | + + + + | 2025-06-29 00:00 | magnesium oxide 400 MG | [facility] | | | Oral Tablet | [facility] | + + + + | (no date) | IRBESARTAN | [facility] | | | | [facility] | + + + + | (no date) | irbesartan 75 MG Oral | [facility] | | | Tablet | [facility] | + + + + | (no date) | Aspirin | [facility] | | | | [facility] | + + + + | (no date) | aspirin 81 MG Oral Capsule | [facility] | | | [[place]] | [facility] | + + + + | (no date) | FERROUS SULFATE | [facility] | | | | [facility] | + + + + | (no date) | ferrous sulfate 325 MG | [facility] | | | Oral Tablet | [facility] | + + + + | (no date) | GLIPIZIDE | [facility] | | | | [facility] | + + + + | (no date) | glipizide 5 MG Oral Tablet | [facility] | | | | [facility] | + + + + | (no date) | Ascorbic Acid/Ascorbate | [facility] | | | Sodium | [facility] | + + + + | (no date) | ascorbic acid 500 MG | [facility] | | | Chewable Tablet | [facility] | + + + + | (no date) | FUROSEMIDE | [facility] | | | | [facility] | + + + + | (no date) | furosemide 40 MG Oral | [facility] | | | Tablet | [facility] | + + + + | (no ) | OMEPRAZOLE MAGNESIUM | [facility] | | | | [facility] | + + + + | (no date) | omeprazole 20 MG Delayed | [facility] | | | Release Oral Tablet | [facility] | + + + + | (no date) | Cholecalciferol (Vitamin | [facility] | | | D3) | [facility] | + + + + | (no date) | cholecalciferol 0.01 MG | [facility] | | | Oral Capsule | [facility] | + + + + | (no ) | AMIODARONE HCL | [facility] | | | | [facility] | + + + + | (no ) | amiodarone hydrochloride | [facility] | | | 200 MG Oral Tablet | [facility] | + + + + | (no date) | AMIODARONE HCL | [facility] | | | | [facility] | + + + + | (no date) | amiodarone hydrochloride | [facility] | | | 400 MG Oral Tablet | [facility] | | | [Pacerone] | | + + + + | (no date) | metFORMIN HCL | [facility] | | | | [facility] | + + + + | (no date) | metformin hydrochloride | [facility] | | | 500 MG Oral Tablet | [facility] | | | [Glucophage] | | + + + + | (no date) | TAMSULOSIN HCL | [facility] | | | | [facility] | + + + + | (no date) | tamsulosin hydrochloride | [facility] | | | 0.4 MG Oral Capsule | [facility] | + + + + | (no date) | 24 HR metoprolol succinate | [facility] | | | 100 MG Extended Release | [facility] | | | Oral Tabl | | + + + + | (no date) | METOPROLOL SUCCINATE | [facility] | | | | [facility] | + + + + | (no date) | 24 HR metoprolol succinate | [facility] | | | 50 MG Extended Release | [facility] | | | Oral Table | | + + + + | (no date) | METOPROLOL SUCCINATE | [facility] | | | | [facility] | + + + + | (no date) | LEVOTHYROXINE SODIUM | [facility] | | | | [facility] | + + + + | (no date) | levothyroxine sodium 0.175 | [facility] | | | MG Oral Tablet [Unithroid] | [facility] | | | | | + + + + Problems + + + + | | description | facility | + + + + | 2025-06-27 00:00 | Near syncope | [facility] | | | | [facility] | + + + + | 2025-06-27 00:00 | Pre-syncope | [facility] | | | | [facility] | + + + + | 2025-06-28 00:00 | Hypomagnesemia | [facility] | | | | [facility] | + + + + | 2025-06-28 00:00 | Dehydration | [facility] | | | | [facility] | + + + + Procedures No information. Results/Labs +--------+--------+ +---------+--------+---------+ | test | date | facility | value | unit | notes | +--------+--------+ +---------+--------+---------+ + + | Result panel 1 | + + + + + +--------+ + + | Blood | 2025-06-27 | | 9.59 | (missing) | (missing) | | leukocytes | 14:50 | [facility] | | | | | automated [facility] | | | (number/volu | | [facility] | | | | | me) | | | | | | + + + +--------+ + + + + | Result panel 2 | + + + + + +--------+ + + | Blood | 2025-06-27 | | 5.39 | (missing) | (missing) | | erythrocytes | 14:50 | [facility] | | | | | automated | [facility] | | | | (number/volu | | [facility] | | | | | me) | | | | | | + + + +--------+ + + + + | Result panel 3 | + + + + + +--------+ + + | Blood | 2025-06-27 | | 15.7 | (missing) | (missing) | | hemoglobin | 14:50 | [facility] | | | | | measurement | [facility] | (mass/volume | [facility] ) | [facility] | | | | + + + +--------+ + + + + | Result panel 4 | + + + + + +--------+ + + | Automated | 2025-06-27 | | 47.1 | (missing) | (missing) | | blood | 14:50 | [facility] | | | | | hematocrit | [facility] | | | | + + + +--------+ + + + + | Result panel 5 | + + + + + +--------+ + + | Automated | 2025-06-27 | | 87.4 | (missing) | (missing) | | erythrocyte | 14:50 | [facility] | | | | | mean | [facility] - [facility] | [facility] | | corpuscular | [facility] | | | | volume | | [facility] | | | | + + + +--------+ + + + + | Result panel 6 | + + + + + +--------+ + + | Automated | 2025-06-27 | | 29.1 | (missing) | (missing) | | erythrocyte | 14:50 | [facility] | | | | | mean | | - [facility] | | | | | corpuscular | | [facility] | | | | | hemoglobin | | Hospital | | | | | (mass per | | | | | | | erythrocyte) | | | | | | | | | | | | | + + + +--------+ + + + + | Result panel 7 | + + + + + +--------+ + + | Automated | 2025-06-27 | | 33.3 | (missing) | (missing) | | erythrocyte | 14:50 | [facility] | | | | | mean | | - [facility] | | | | | corpuscular | | [facility] | | | | | hemoglobin | | Hospital | | | | | concentratio | | | | | | | n | | | | | | | measurement | | | | | | | (mass/volume | | | | | | | ) | | | | | | + + + +--------+ + + + + | Result panel 8 | + + + + + +-------+ + + | Automated | 2025-06-27 | | 219 | (missing) | (missing) | | blood | 14:50 | [facility] | | | | | platelet | [facility] count | [facility] | | | | | (count/volum | | Hospital | | | | | e) | | | | | | + + + +-------+ + + + + | Result panel 9 | + + + + + +--------+ + + | Automated | 2025-06-27 | | 71.3 | (missing) | (missing) | | blood | 14:50 | [facility] | | | | | neutrophil | [facility] - [facility] | count as | [facility] | | | | | percentage | | Hospital | | | | | of total | | | | | | | leukocytes | | | | | | + + + +--------+ + + + + | Result panel 10 | + + + + + +--------+ + + | Automated | 2025-06-27 | | 17.0 | (missing) | (missing) | | blood | 14:50 | [facility] | | | | | lymphocyte | | - [facility] | count as | [facility] | | | | | percentage | | Hospital | | | | | ot total | | | | | | | leukocytes | | | | | | + + + +--------+ + + + + | Result panel 11 | + + + + + +-------+ + + | Automated | 2025-06-27 | | 8.9 | (missing) | (missing) | | blood | 14:50 | [facility] | | | | | monocyte | | - [facility] | count as | [facility] | | | | | percentage | | Hospital | | | | | of total | | | | | | | leukocytes | | | | | | + + + +-------+ + + + + | Result panel 12 | + + + + + +-------+ + + | Automated | 2025-06-27 | | 1.8 | (missing) | (missing) | | blood | 14:50 | [facility] | | | | | eosinophil | | - [facility] | count as | [facility] | | | | | percentage | | Hospital | | | | | of total | | | | | | | leukocytes | | | | | | + + + +-------+ + + + + | Result panel 13 | + + + + + +-------+ + + | Automated | 2025-06-27 | | 0.5 | (missing) | (missing) | | blood | 14:50 | [facility] | | | | | basophil | [facility] - [facility] count as | [facility] | | | | | percentage | | Hospital | | | | | of total | | | | | | | leukocytes | | | | | | + + + +-------+ + + + + | Result panel 14 | + + + + + +-------+ + + | Serum or | 2025-06-27 | | 174 | (missing) | (missing) | | plasma | 14:50 | [facility] | | | | | glucose | | - [facility] | measurement | [facility] | | | | | (mass/volume | | Hospital | | | | | ) | | | | | | + + + +-------+ + + + + | Result panel 15 | + + + + + +------+ + + | Serum or | 2025-06-27 | | 24 | (missing) | (missing) | | plasma urea | 14:50 | [facility] | | | | | nitrogen | [facility] - [facility] | measurement | [facility] | | | | | (mass/volume | | Hospital | | | | | ) | | | | | | + + + +------+ + + + + | Result panel 16 | + + + + + +--------+ + + | Serum or | 2025-06-27 | | 1.50 | (missing) | (missing) | | plasma | 14:50 | [facility] | | | | | creatinine | | - [facility] | [facility] | measurement | [facility] | | | | | (mass/volume | | Hospital | | | | | ) | | | | | | + + + +--------+ + + + + | Result panel 17 | + + + + + +------+ + + | Glomerular | 2025-06-27 | | 48 | (missing) | (missing) | | filtration | 14:50 | [facility] | | | | | rate/1.73 sq | | - [facility] | | | | | M.predicted | | [facility] | | | | | [Volume | | Hospital | | | | | Rate/Area] | | | | | | | inSerum, | | | | | | | Plasma or | | | | | | | Blood by | | | | | | | Creatinine-b | | | | | | | ased formula | | | | | | | (CKD-EPI | | | | | | | 2020) | | | | | | + + + +------+ + + + + | Result panel 18 | + + + + + +---------+ + + | Serum or | 2025-06-27 | | 16.00 | (missing) | (missing) | | plasma urea | 14:50 | [facility] | | | | | nitrogen/cre | | - [facility] | | | | | atinine mass | | [facility] | | | | | ratio | | Hospital | | | | + + + +---------+ + + + + | Result panel 19 | + + + + + +-------+ + + | Serum or | 2025-06-27 | | 132 | (missing) | (missing) | | plasma | 14:50 | [facility] | | | | | sodium | | - [facility] | | [facility] | measurement | | [facility] | | | | | (moles/volum | | Hospital | | | | | e) | | | | | | + + + +-------+ + + + + | Result panel 20 | + + + + + +-------+ + + | Serum or | 2025-06-27 | | 4.6 | (missing) | (missing) | | plasma | 14:50 | [facility] | | | | | potassium | | - [facility] | | [facility] | measurement | | [facility] | | | | | (moles/volum | | Hospital | | | | | e) | | | | | | + + + +-------+ + + + + | Result panel 21 | + + + + + +-------+ + + | Serum or | 2025-06-27 | | 100 | (missing) | (missing) | | plasma | 14:50 | [facility] | | | | | chloride | | - [facility] | | [facility] | measurement | | [facility] | | | | | (moles/volum | | Hospital | | | | | e) | | | | | | + + + +-------+ + + + + | Result panel 22 | + + + + + +------+ + + | Serum or | 2025-06-27 | | 21 | (missing) | (missing) | | plasma | 14:50 | [facility] | | | | | carbon | | - [facility] | | [facility] | | dioxide, | | [facility] | | | | | total | | Hospital | | | | | measurement | | | | | | | (moles/volum | | | | | | | e) | | | | | | + + + +------+ + + + + | Result panel 23 | + + + + + +--------+ + + | Serum or | 2025-06-27 | | 15.6 | (missing) | (missing) | | plasma anion | 14:50 | [facility] | | | | | gap 4 | [facility] | | | | + + + +--------+ + + + + | Result panel 24 | + + + + + +--------+ + + | Serum or | 2025-06-27 | | 10.2 | (missing) | (missing) | | plasma | 14:50 | [facility] | | | | | calcium | | - [facility] | measurement | [facility] | | | | | (mass/volume | | Hospital | | | | | ) | | | | | | + + + +--------+ + + + + | Result panel 25 | + + + + + +-------+ + + | Serum or | 2025-06-27 | | 7.7 | (missing) | (missing) | | plasma | 14:50 | [facility] | | | | | protein | | - [facility] | measurement | [facility] | | | | | (mass/volume | | Hospital | | | | | ) | | | | | | + + + +-------+ + + + + | Result panel 26 | + + + + + +-------+ + + | Serum or | 2025-06-27 | | 3.7 | (missing) | (missing) | | plasma | 14:50 | [facility] | | | | | albumin | | - [facility] | measurement | [facility] | | | | (mass/volume | | Hospital | | | | | ) | | | | | | + + + +-------+ + + + + | Result panel 27 | + + + + + +-------+ + + | Serum | 2025-06-27 | | 4.0 | (missing) | (missing) | | globulin | 14:50 | [facility] | | | | | measurement | | - [facility] | [facility] | (mass/volume | | [facility] | | | | ) | | [facility] | | | | + + + +-------+ + + + + | Result panel 28 | + + + + + +--------+ + + | Serum or | 2025-06-27 | | 0.93 | (missing) | (missing) | | plasma | 14:50 | [facility] | | | | | albumin/glob | [facility] - [facility] | | [facility] | | ulin mass | | [facility] | | | | | ratio | | Hospital | | | | + + + +--------+ + + + + | Result panel 29 | + + + + + +-------+ + + | Serum or | 2025-06-27 | | 0.5 | (missing) | (missing) | | plasma total | 14:50 | [facility] | | | | | bilirubin | | - [facility] | measurement | | [facility] | | | | | (mass/volume | | Hospital | | | | | ) | | | | | | + + + +-------+ + + + + | Result panel 30 | + + + + + +------+ + + | Serum or | 2025-06-27 | | 19 | (missing) | (missing) | | plasma | 14:50 | [facility] | | | | | aspartate | | - [facility] | | | | | aminotransfe | | [facility] | | | | | rase | | Hospital | | | | | measurement | | | | | | | (enzymatic | | | | | | | activity/vol | | | | | | | ume) | | | | | | + + + +------+ + + + + | Result panel 31 | + + + + + +------+ + + | Serum or | 2025-06-27 | | 22 | (missing) | (missing) | | plasma | 14:50 | [facility] | | | | | alanine | | - [facility] | | | | | aminotransfe | | [facility] | | | | | rase | | Hospital | | | | | measurement | | | | | | | (enzymatic | | | | | | | activity/vol | | | | | | | ume) | | | | | | + + + +------+ + + + + | Result panel 32 | + + + + + +-------+ + + | Serum or | 2025-06-27 | | 125 | (missing) | (missing) | | plasma | 14:50 | [facility] | | | | | alkaline | [facility] - [facility] | | | | | phosphatase | | [facility] | | | | | measurement | | Hospital | | | | | (enzymatic | | | | | | | activity/vol | | | | | | | ume) | | | | | | + + + +-------+ + + + + | Result panel 33 | + + + + + +-------+ + + | Urine pH | 2025-06-27 | | 5.5 | (missing) | (missing) | | measurement | 15:53 | [facility] | | | | | by test | [facility] - [facility] | [facility] | | strip | [facility] | | | | + + + +-------+ + + + + | Result panel 34 | + + + + + +-------+ + + | Protein | 2025-06-27 | | 100 | (missing) | (missing) | | urine test | 15:53 | [facility] | | | | | strip | [facility] | [facility] | | | [facility] | | [facility] | | | | + + + +-------+ + + + + | Result panel 35 | + + + + + + + + + | | 2025-06-27 | | NORMAL | (missing) | (missing) | | Urobilinogen | 15:53 | [facility] | | | | | | | - [facility] | | | | | [Mass/volume | | [facility] | | | | | ] in Urine | | Hospital | | | | | by Test | | | | | | | strip | | | | | | + + + + + + + + + | Result panel 36 | + + + + + + + + + | Urine | 2025-06-27 | | NEGATIVE | (missing) | (missing) | | nitrite | 15:53 | [facility] | | | | | detection by | [facility] - [facility] | [facility] | | test strip | [facility] | [facility] | | | | + + + + + + + + + | Result panel 37 | + + + + + + + + + | Urine | 2025-06-27 | | NEGATIVE | (missing) | (missing) | | leukocyte | 15:53 | [facility] | | | | | esterase | | - [facility] | | | | | detection by | | [facility] | | | | | dipstick | | Hospital | | | | + + + + + + + + + | Result panel 38 | + + + + + +-------+ + + | Automated | 2025-06-27 | | 0-1 | (missing) | (missing) | | urine | 15:53 | [facility] | | | | | sediment | | - [facility] | | | | | erythrocyte | | [facility] | | | | | count by | | Hospital | | | | | microscopy | | | | | | | (number/high | | | | | | | power | | | | | | | field) | | | | | | + + + +-------+ + + + + | Result panel 39 | + + + + + +-------+ + + | Automated | 2025-06-27 | | 0-1 | (missing) | (missing) | | urine | 15:53 | [facility] | | | | | sediment | | - [facility] | | | | | leukocyte | | [facility] | | | | | count by | | Hospital | | | | | microscopy | | | | | | | (number/high | | | | | | | power | | | | | | | field) | | | | | | + + + +-------+ + + + + | Result panel 40 | + + + + + + + + + | Automated | 2025-06-27 | | SQUAMOUS 1+ | (missing) | (missing) | | urine | 15:53 | [facility] | | | | | sediment | | - [facility] | | | | | epithelial | | [facility] | | | | | cell count | | Hospital | | | | | by | | | | | | | microscopy | | | | | | | (number/high | | | | | | | power | | | | | | | field) | | | | | | + + + + + + + + + | Result panel 41 | + + + + + + + + + | Crystal | 2025-06-27 | | NONE SEEN | (missing) | (missing) | | typing in | 15:53 | [facility] | | | | | urine | | - [facility] | | | | | sediment by | | [facility] | | | | | light | | Hospital | | | | | microscopy | | | | | | + + + + + + + + + | Result panel 42 | + + + + + + + + + | Automated | 2025-06-27 | | NONE SEEN | (missing) | (missing) | | urine | 15:53 | [facility] | | | | | sediment | | - [facility] | | | | | bacteria | | [facility] | | | | | count by | | Hospital | | | | | microscopy | | | | | | | (number/high | | | | | | | power | | | | | | | field) | | | | | | + + + + + + + + + | Result panel 43 | + + + + + + + + + | Automated | 2025-06-27 | | NONE SEEN | (missing) | (missing) | | casts count | 15:53 | [facility] | | | | | in urine | | - [facility] | | | | | sediment by | | [facility] | | | | | microscopy | | Hospital | | | | | low power | | | | | | | field | | | | | | | (number/area | | | | | | | ) | | | | | | + + + + + + + + + | Result panel 44 | + + + + + +------+ + + | Reflexive | 2025-06-27 | | No | (missing) | (missing) | | urine | 15:53 | [facility] | | | | | bacterial | | - [facility] | | [facility] | | culture | | [facility] | | | | | | [facility] | | | | + + + +------+ + + + + | Result panel 45 | + + + + + + + + + | Urinalysis | 2025-06-27 | | CLEAN CATCH | (missing) | (missing) | | specimen | 15:53 | [facility] | | | | | collection | [facility] | | | | | method | [facility] | | [facility] | | | | + + + + + + + + + | Result panel 46 | + + + + + + + + + | Color of | 2025-06-27 | | YELLOW | (missing) | (missing) | | Urine by | 15:53 | [facility] | | | | | Auto | | - [facility] | | | | | | | [facility] | | [facility] | | | | + + + + + + + + + | Result panel 47 | + + + + + +---------+ + + | Character | 2025-06-27 | | CLEAR | (missing) | (missing) | | of Urine | 15:53 | [facility] | | | | | | [facility] | | | | | | [facility] | [facility] | | | | + + + +---------+ + + + + | Result panel 48 | + + + + + +---------+ + + | Glucose | 2025-06-27 | | SMALL | (missing) | (missing) | | [Presence] | 15:53 | [facility] | | | | | in Urine by | | - [facility] | | [facility] | | Test strip | | [facility] | | [facility] | | | | + + + +---------+ + + + + | Result panel 49 | + + + + + + + + + | Urine total | 2025-06-27 | | POSITIVE | (missing) | (missing) | | bilirubin | 15:53 | [facility] | | | | | detection by | | - [facility] | | [facility] | | test strip | | [facility] | [facility] | | | | + + + + + + + + + | Result panel 50 | + + + + + + + + + | Urine | 2025-06-27 | | NEGATIVE | (missing) | (missing) | | ketones | 15:53 | [facility] | | | | | detection by | [facility] test strip [facility] | | | | + + + + + + + + + | Result panel 51 | + + + + + + + + + | Specific | 2025-06-27 | | >=1.030 | (missing) | (missing) | | gravity ur | 15:53 | [facility] | | | | | dipstick [facility] | | | | + + + + + + + + + | Result panel 52 | + + + + + + + + + | Urine | 2025-06-27 | | NEGATIVE | (missing) | (missing) | | hemoglobin | 15:53 | [facility] | | | | | detection by | | - | | | | | test strip | | [facility] | | | | + + + + + + + + + | Result panel 53 | + + + + + +--------+ + + | Serum or | 2025-06-27 | | 48.6 | (missing) | (missing) | | plasma | 17:07 | [facility] | | | | | cardiac [facility] trop[facility] | [facility] | | | | measurement | | [facility] | | | | | by high | | | | | | | senstivity | | | | | | | method | | | | | | | (mass/volume | | | | | | | ) | | | | | | + + + +--------+ + + + + | Result panel 54 | + + + + + +--------+ + + | Serum or | 2025-06-27 | | 48.6 | (missing) | (missing) | | plasma | 17:07 | [facility] | | | | | cardiac | [facility] | [facility] | troponin [facility] | | [facility] | | | | measurement | | [facility] | | | | | by high | | | | | | | senstivity | | | | | | | method | | | | | | | (mass/volume | | | | | | | ) | | | | | | + + + +--------+ + + + + | Result panel 55 | + + + + + +-------+ + + | Serum or | 2025-06-27 | | 2.0 | (missing) | (missing) | | plasma | 17:07 | [facility] | | | | | lactate | | - [facility] | [facility] | measurement | | [facility] | | | | | (moles/volum | | Hospital | | | | | e) | | | | | | + + + +-------+ + + + + | Result panel 56 | + + + + + +-------+ + + | Serum or | 2025-06-27 | | 2.0 | (missing) | (missing) | | plasma | 17:07 | [facility] | | | | | lactate | | - [facility] | [facility] | measurement | | [facility] | | | | (moles/volum | | Hospital | | | | | e) | | | | | | + + + +-------+ + + + + | Result panel 57 | + + + + + +--------+ + + | Troponin I | 2025-06-27 | | 48.6 | (missing) | (missing) | | SerPl | 17:07:07 | [facility] | | | | | [facility] | | - | | | | | | | [facility] | | | | + + + +--------+ + + + + | Result panel 58 | + + + + + +-------+ + + | Lactate | 2025-06-27 | | 2.0 | (missing) | (missing) | | SerPl-sCnc | 17:07:07 | [facility] | | | | | | [facility] - [facility] | [facility] | | [facility] | | | | + + + +-------+ + + + + | Result panel 59 | + + + + + +-------+ + + | Urine pH | 2025-06-28 | | 5.5 | (missing) | (missing) | | measurement | 22:40 | [facility] | | | | | by test | [facility] - [facility] | [facility] | | strip | [facility] | | | | + + + +-------+ + + + + | Result panel 60 | + + + + + +-------+ + + | Protein | 2025-06-28 | | 100 | (missing) | (missing) | | urine test | 22:40 | [facility] | | | | | strip | | - [facility] | | | | | | [facility] | | | | + + + +-------+ + + + + | Result panel 61 | + + + + + + + + + | | 2025-06-28 | | NORMAL | (missing) | (missing) | | Urobilinogen | 22:40 | [facility] | | | | | | | [facility] | | | | | [Mass/volume | | [facility] | | | | | ] in Urine | | Hospital | | | | | by Test | | | | | | | strip | | | | | | + + + + + + + + + | Result panel 62 | + + + + + + + + + | Urine | 2025-06-28 | | NEGATIVE | (missing) | (missing) | | nitrite | 22:40 | [facility] | | | | | detection by | [facility] | test strip | [facility] | | | | + + + + + + + + + | Result panel 63 | + + + + + + + + + | Urine | 2025-06-28 | | NEGATIVE | (missing) | (missing) | | leukocyte | 22:40 | [facility] | | | | | esterase | [facility] - [facility] | detection by | | [facility] | | | | dipstick | | [facility] | | | | + + + + + + + + + | Result panel 64 | + + + + + +--------+ + + | Automated | 2025-06-28 | | 7-11 | (missing) | (missing) | | urine | 22:40 | [facility] | | | | | sediment | | - [facility] | | | | | erythrocyte | | [facility] | | | | | count by | | Hospital | | | | | microscopy | | | | | | | (number/high | | | | | | | power | | | | | | | field) | | | | | | + + + +--------+ + + + + | Result panel 65 | + + + + + +-------+ + + | Automated | 2025-06-28 | | 4-6 | (missing) | (missing) | | urine | 22:40 | [facility] | | | | | sediment | | - [facility] | | | | | leukocyte | | [facility] | | | | | count by | | Hospital | | | | | microscopy | | | | | | | (number/high | | | | | | | power | | | | | | | field) | | | | | | + + + +-------+ + + + + | Result panel 66 | + + + + + + + + + | Automated | 2025-06-28 | | SQUAMOUS 1+ | (missing) | (missing) | | urine | 22:40 | [facility] | | | | | sediment | | - [facility] | | | | | epithelial | | [facility] | | | | | cell count | | Hospital | | | | | by | | | | | | | microscopy | | | | | | | (number/high | | | | | | | power | | | | | | | field) | | | | | | + + + + + + + + + | Result panel 67 | + + + + + + + + + | Crystal | 2025-06-28 | | NONE SEEN | (missing) | (missing) | | typing in | 22:40 | [facility] | | | | | urine | | - [facility] | | | | | sediment by | | [facility] | | | | light | | Hospital | | | | | microscopy | | | | | | + + + + + + + + + | Result panel 68 | + + + + + +--------+ + + | Automated | 2025-06-28 | | RARE | (missing) | (missing) | | urine | 22:40 | [facility] | | | | | sediment | | - [facility] | | | | | bacteria | | [facility] | | | | | count by | | Hospital | | | | | microscopy | | | | | | | (number/high | | | | | | | power | | | | | | | field) | | | | | | + + + +--------+ + + + + | Result panel 69 | + + + + + + + + + | Automated | 2025-06-28 | | NONE SEEN | (missing) | (missing) | | casts count | 22:40 | [facility] | | | | | in urine | | - [facility] | | | | | sediment by | | [facility] | | | | | microscopy | | Hospital | | | | | low power | | | | | | | field | | | | | | | (number/area | | | | | | | ) | | | | | | + + + + + + + + + | Result panel 70 | + + + + + +------+ + + | Reflexive | 2025-06-28 | | No | (missing) | (missing) | | urine | 22:40 | [facility] | | | | | bacterial | | - [facility] | | [facility] | culture | | [facility] | | [facility] | | | | + + + +------+ + + + + | Result panel 71 | + + + + + + + + + | Urinalysis | 2025-06-28 | | CLEAN CATCH | (missing) | (missing) | | specimen | 22:40 | [facility] | | | | | collection | [facility] - [facility] | [facility] | | method | [facility] | | | | + + + + + + + + + | Result panel 72 | + + + + + + + + + | Color of | 2025-06-28 | | YELLOW | (missing) | (missing) | | Urine by | 22:40 | [facility] | | | | | Auto | | - [facility] | | | | | | | [facility] | | | | + + + + + + + + + | Result panel 73 | + + + + + +---------+ + + | Character | 2025-06-28 | | CLEAR | (missing) | (missing) | | of Urine | 22:40 | [facility] | | | | | | | - [facility] | | | | | | | [facility] | | | | + + + +---------+ + + + + | Result panel 74 | + + + + + + + + + | Glucose | 2025-06-28 | | >=1000 | (missing) | (missing) | | [Presence] | 22:40 | [facility] | | | | | in Urine by | | - [facility] | [facility] | Test strip | | [facility] | | | | + + + + + + + + + | Result panel 75 | + + + + + + + + + | Urine total | 2025-06-28 | | NEGATIVE | (missing) | (missing) | | bilirubin | 22:40 | [facility] | | | | | detection by | | - [facility] | test strip | [facility] | | | | + + + + + + + + + | Result panel 76 | + + + + + + + + + | Urine | 2025-06-28 | | NEGATIVE | (missing) | (missing) | | ketones | 22:40 | [facility] | | | | | detection by | | - [facility] | test strip | [facility] | | | | + + + + + + + + + | Result panel 77 | + + + + + + + + + | Specific | 2025-06-28 | | >=1.030 | (missing) | (missing) | | gravity ur | 22:40 | [facility] | | | | | dipstick | | - [facility] | | | | | | [facility] | | | | + + + + + + + + + | Result panel 78 | + + + + + + + + + | Urine | 2025-06-28 | | TRACE-I | (missing) | (missing) | | hemoglobin | 22:40 | [facility] | | | | | detection by | [facility] - [facility] | test strip | [facility] | | | | + + + + + + + + + | Result panel 79 | + + + + + + + + + | Color Ur | 2025-06-28 | | YELLOW | (missing) | (missing) | | Auto | 22:40:07 | [facility] | | | | | | | - [facility] | | | | | [facility] | | | | + + + + + + + + + | Result panel 80 | + + + + + +---------+ + + | Character | 2025-06-28 | | CLEAR | (missing) | (missing) | | Ur | 22:40:07 | [facility] | | | | | | [facility] - [facility] | | | | | | [facility] | | | | + + + +---------+ + + + + | Result panel 81 | + + + + + + + + + | Glucose Ur | 2025-06-28 | | >=1000 | (missing) | (missing) | | Ql Strip | 22:40:07 | [facility] | | | | | | [facility] | [facility] | | [facility] | | | | + + + + + + + + + | Result panel 82 | + + + + + + + + + | Bilprecious Ur | 2025-06-28 | | NEGATIVE | (missing) | (missing) | | Ql Strip | 22:40:07 | [facility] | | | | | | [facility] - [facility] | | [facility] | | [facility] | | | | + + + + + + + + + | Result panel 83 | + + + + + + + + + | Ketones Ur | 2025-06-28 | | NEGATIVE | (missing) | (missing) | | Ql Strip | 22:40:07 | [facility] | | | | | | [facility] - [facility] | [facility] | | [facility] | | | | + + + + + + + + + | Result panel 84 | + + + + + + + + + | Sp Gr Ur | 2025-06-28 | | >=1.030 | (missing) | (missing) | | Strip | 22:40:07 | [facility] | | | | | | [facility] - [facility] | [facility] | [facility] | | | | + + + + + + + + + | Result panel 85 | + + + + + + + + + | Hgb Ur Ql | 2025-06-28 | | TRACE-I | (missing) | (missing) | | Strip | 22:40:07 | [facility] | | | | | | [facility] - [facility] | [facility] | | [facility] | | | | + + + + + + + + + | Result panel 86 | + + + + + +-------+ + + | pH Ur Strip | 2025-06-28 | | 5.5 | (missing) | (missing) | | | 22:40:07 | [facility] | | | | | | [facility] | [facility] | [facility] | | | | + + + +-------+ + + + + | Result panel 87 | + + + + + +-------+ + + | Prot Ur | 2025-06-28 | | 100 | (missing) | (missing) | | Strip-mCbina | 22:40:07 | [facility] | | | | | | [facility] - [facility] | | [facility] | | [facility] | | | | + + + +-------+ + + + + | Result panel 88 | + + + + + + + + + | | 2025-06-28 | | NORMAL | (missing) | (missing) | | Urobilinogen | 22:40:07 | [facility] | | | | | Ur | | - | | | | | Strip-Angela | | [facility] | | | | + + + + + + + + + | Result panel 89 | + + + + + + + + + | Nitrite Ur | 2025-06-28 | | NEGATIVE | (missing) | (missing) | | Ql Strip | 22:40:07 | [facility] | | | | | | [facility] - [facility] | | [facility] | | [facility] | | | | + + + + + + + + + | Result panel 90 | + + + + + + + + + | Leukocyte | 2025-06-28 | | NEGATIVE | (missing) | (missing) | | esterase Ur | 22:40:07 | [facility] | | | | | Ql Strip | [facility] | | | | + + + + + + + + + | Result panel 91 | + + + + + +--------+ + + | RBC #/area | 2025-06-28 | | 7-11 | (missing) | (missing) | | UrnS HPF | 22:40:07 | [facility] | | | | | | [facility] | | | | + + + +--------+ + + + + | Result panel 92 | + + + + + +-------+ + + | WBC #/area | 2025-06-28 | | 4-6 | (missing) | (missing) | | UrnS HPF | 22:40:07 | [facility] | | | | | | [facility] - [facility] | [facility] | | [facility] | | | | + + + +-------+ + + + + | Result panel 93 | + + + + + + + + + | Epi Cells | 2025-06-28 | | SQUAMOUS 1+ | (missing) | (missing) | | #/area UrnS | 22:40:07 | [facility] | | | | | HPF | [facility] | | | | + + + + + + + + + | Result panel 94 | + + + + + + + + + | Crystals | 2025-06-28 | | NONE SEEN | (missing) | (missing) | | UrnS Micro | 22:40:07 | [facility] | | | | | | [facility] - [facility] | | | | | [facility] | | | | + + + + + + + + + | Result panel 95 | + + + + + +--------+ + + | Bacteria | 2025-06-28 | | RARE | (missing) | (missing) | | #/area UrnS | 22:40:07 | [facility] | | | | | HPF | [facility] | | | | + + + +--------+ + + + + | Result panel 96 | + + + + + + + + + | Casts | 2025-06-28 | | NONE SEEN | (missing) | (missing) | | #/area UrnS | 22:40:07 | [facility] | | | | | LPF | [facility] - [facility] | [facility] | | | [facility] | | | | + + + + + + + + + | Result panel 97 | + + + + + +------+ + + | Bacteria Ur | 2025-06-28 | | No | (missing) | (missing) | | Cult | 22:40:07 | [facility] | | | | | | [facility] - [facility] | [facility] | | [facility] | | | | + + + +------+ + + + + | Result panel 98 | + + + + + + + + + | Urn Spec | 2025-06-28 | | CLEAN CATCH | (missing) | (missing) | | Collect Meth | 22:40:07 | [facility] | | | | | Ur | [facility] - [facility] | [facility] | [facility] | | | | + + + + + + + + + | Result panel 99 | + + + + + + + + + | Respiratory | 2025-06-28 | | NEGATIVE | (missing) | (missing) | | specimen | 23:09 | [facility] | | | | | 2019 novel | [facility] - [facility] | | [facility] | coronavirus | | [facility] | | | | RNA | | Hospital | | | | | detection | | | | | | + + + + + + + + + | Result panel 100 | + + + + + + + + + | Influenza | 2025-06-28 | | NEGATIVE | (missing) | (missing) | | virus A RNA | 23:09 | [facility] | | | | | [Presence] | | - [facility] | | | | | in | | [facility] | | | | | Respiratory | | Hospital | | | | | specimen by | | | | | | | [facility] | | | | | | | withprobe | | | | | | | detection | | | | | | + + + + + + + + + | Result panel 101 | + + + + + + + + + | Influenza | 2025-06-28 | | NEGATIVE | (missing) | (missing) | | virus B RNA | 23:09 | [facility] | | | | | [Presence] | | - [facility] | | | | | in | | [facility] | | | | | Respiratory | | Hospital | | | | | specimen by | | | | | | | [facility] | | | | | | | withprobe | | | | | | | detection | | | | | | + + + + + + + + + | Result panel 102 | + + + + + + + + + | Respiratory | 2025-06-28 | | NEGATIVE | (missing) | (missing) | | syncytial | 23:09 | [facility] | | | | | virus (RSV) | | - [facility] | | | | | RNA | | [facility] | | | | | detection by | | Hospital | | | | | probe and | | | | | | | target | | | | | | | amplificatio | | | | | | | n method in | | | | | | | culture | | | | | | | isolate | | | | | | + + + + + + + + + | Result panel 103 | + + + + + + + + + | SARS-CoV-2 | 2025-06-28 | | NEGATIVE | (missing) | (missing) | | RNA Resp Ql | 23:09:07 | [facility] | | | | | | [facility] - [facility] | | | | | | [facility] | | | | + + + + + + + + + | Result panel 104 | + + + + + + + + + | FLUAV RNA | 2025-06-28 | | NEGATIVE | (missing) | (missing) | | Resp Ql | 23:09:07 | [facility] | | | | | DADA+probe | [facility] - [facility] | | | | | [facility] | [facility] | | | | + + + + + + + + + | Result panel 105 | + + + + + + + + + | FLUBV RNA | 2025-06-28 | | NEGATIVE | (missing) | (missing) | | Resp Ql | 23:09:07 | [facility] | | | | | DADA+probe | [facility] - [facility] | | | | | [facility] | | | | + + + + + + + + + | Result panel 106 | + + + + + + + + + | RSV RNA | 2025-06-28 | | NEGATIVE | (missing) | (missing) | | Islt Ql | 23:09:07 | [facility] | | | | | DADA+probe | [facility] - [facility] | | | | | [facility] | | | | + + + + + + + + + | Result panel 107 | + + + + + +---------+ + + | Blood | 2025-06-28 | | 14.49 | (missing) | (missing) | | leukocytes | 23:20 | [facility] | | | | | automated | | - [facility] | | | | | count | | [facility] | | | | | (number/volu | | Hospital | | | | | me) | | | | | | + + + +---------+ + + + + | Result panel 108 | + + + + + +--------+ + + | Blood | 2025-06-28 | | 5.58 | (missing) | (missing) | | erythrocytes | 23:20 | [facility] | | | | | automated | | - [facility] | | | | | count | | [facility] | | | | | (number/volu | | Hospital | | | | | me) | | | | | | + + + +--------+ + + + + | Result panel 109 | + + + + + +--------+ + + | Blood | 2025-06-28 | | 16.4 | (missing) | (missing) | | hemoglobin | 23:20 | [facility] | | | | | measurement | | - [facility] | | | | | (mass/volume | | [facility] | | | | ) | | [facility] | | | | + + + +--------+ + + + + | Result panel 110 | + + + + + +--------+ + + | Automated | 2025-06-28 | | 48.6 | (missing) | (missing) | | blood | 23:20 | [facility] | | | | | hematocrit | | - [facility] | [facility] | | [facility] | | | | + + + +--------+ + + + + | Result panel 111 | + + + + + +--------+ + + | Automated | 2025-06-28 | | 87.1 | (missing) | (missing) | | erythrocyte | 23:20 | [facility] | | | | | mean | | - [facility] | | | | | corpuscular | | [facility] | | | | | volume | | Hospital | | | | + + + +--------+ + + + + | Result panel 112 | + + + + + +--------+ + + | Automated | 2025-06-28 | | 29.4 | (missing) | (missing) | | erythrocyte | 23:20 | [facility] | | | | | mean | | - [facility] | | | | | corpuscular | | [facility] | | | | | hemoglobin | | Hospital | | | | | (mass per | | | | | | | erythrocyte) | | | | | | | | | | | | | + + + +--------+ + + + + | Result panel 113 | + + + + + +--------+ + + | Automated | 2025-06-28 | | 33.7 | (missing) | (missing) | | erythrocyte | 23:20 | [facility] | | | | | mean | | - [facility] | | | | | corpuscular | | [facility] | | | | | hemoglobin | | Hospital | | | | | concentratio | | | | | | | n | | | | | | | measurement | | | | | | | (mass/volume | | | | | | | ) | | | | | | + + + +--------+ + + + + | Result panel 114 | + + + + + +-------+ + + | Automated | 2025-06-28 | | 212 | (missing) | (missing) | | blood | 23:20 | [facility] | | | | | platelet | | - [facility] | | [facility] | count | | [facility] | | | | | (count/volum | | Hospital | | | | | e) | | | | | | + + + +-------+ + + + + | Result panel 115 | + + + + + +--------+ + + | Automated | 2025-06-28 | | 90.0 | (missing) | (missing) | | blood | 23:20 | [facility] | | | | | neutrophil | | - [facility] | | | | | count as | | [facility] | | | | | percentage | | Hospital | | | | | of total | | | | | | | leukocytes | | | | | | + + + +--------+ + + + + | Result panel 116 | + + + + + +-------+ + + | Automated | 2025-06-28 | | 3.2 | (missing) | (missing) | | blood | 23:20 | [facility] | | | | | lymphocyte | | - [facility] | | | | | count as | | [facility] | | | | | percentage | | Hospital | | | | | ot total | | | | | | | leukocytes | | | | | | + + + +-------+ + + + + | Result panel 117 | + + + + + +-------+ + + | Automated | 2025-06-28 | | 5.9 | (missing) | (missing) | | blood | 23:20 | [facility] | | | | | monocyte | | - [facility] | | | | | count as | | [facility] | | | | | percentage | | Hospital | | | | | of total | | | | | | | leukocytes | | | | | | + + + +-------+ + + + + | Result panel 118 | + + + + + +-------+ + + | Automated | 2025-06-28 | | 0.2 | (missing) | (missing) | | blood | 23:20 | [facility] | | | | | eosinophil | | - [facility] | | [facility] | count as | | [facility] | | | | | percentage | | Hospital | | | | | of total | | | | | | | leukocytes | | | | | | + + + +-------+ + + + + | Result panel 119 | + + + + + +-------+ + + | Automated | 2025-06-28 | | 0.3 | (missing) | (missing) | | blood | 23:20 | [facility] | | | | | basophil | | - [facility] | | [facility] | count as | | [facility] | | | | | percentage | | Hospital | | | | | of total | | | | | | | leukocytes | | | | | | + + + +-------+ + + + + | Result panel 120 | + + + + + +-------+ + + | Serum or | 2025-06-28 | | 207 | (missing) | (missing) | | plasma | 23:20 | [facility] | | | | | glucose | | - [facility] | | | | | measurement | | [facility] | | | | | (mass/volume | | Hospital | | | | | ) | | | | | | + + + +-------+ + + + + | Result panel 121 | + + + + + +------+ + + | Serum or | 2025-06-28 | | 22 | (missing) | (missing) | | plasma urea | 23:20 | [facility] | | | | | nitrogen | | - [facility] | | | | | measurement | | [facility] | | | | | (mass/volume | | Hospital | | | | | ) | | | | | | + + + +------+ + + + + | Result panel 122 | + + + + + +--------+ + + | Serum or | 2025-06-28 | | 1.42 | (missing) | (missing) | | plasma | 23:20 | [facility] | | | | | creatinine | | - [facility] | | | | | measurement | | [facility] | | | | | (mass/volume | | Hospital | | | | | ) | | | | | | + + + +--------+ + + + + | Result panel 123 | + + + + + +------+ + + | Glomerular | 2025-06-28 | | 51 | (missing) | (missing) | | filtration | 23:20 | [facility] | | | | | rate/1.73 sq | | - [facility] | | | | | M.predicted | | [facility] | | | | | [Volume | | Hospital | | | | | Rate/Area] | | | | | | | inSerum, | | | | | | | Plasma or | | | | | | | Blood by | | | | | | | Creatinine-b | | | | | | | ased formula | | | | | | | (CKD-EPI | | | | | | | 2020) | | | | | | + + + +------+ + + + + | Result panel 124 | + + + + + +---------+ + + | Serum or | 2025-06-28 | | 15.49 | (missing) | (missing) | | plasma urea | 23:20 | [facility] | | | | | nitrogen/cre | | - [facility] | | | | | atinine mass | | [facility] | | | | | ratio | | Hospital | | | | + + + +---------+ + + + + | Result panel 125 | + + + + + +-------+ + + | Serum or | 2025-06-28 | | 134 | (missing) | (missing) | | plasma | 23:20 | [facility] | | | | | sodium | | - [facility] | | | | | measurement | | [facility] | | | | | (moles/volum | | Hospital | | | | | e) | | | | | | + + + +-------+ + + + + | Result panel 126 | + + + + + +-------+ + + | Serum or | 2025-06-28 | | 4.4 | (missing) | (missing) | | plasma | 23:20 | [facility] | | | | | potassium | | - [facility] | | | | | measurement | | [facility] | | | | | (moles/volum | | Hospital | | | | | e) | | | | | | + + + +-------+ + + + + | Result panel 127 | + + + + + +------+ + + | Serum or | 2025-06-28 | | 99 | (missing) | (missing) | | plasma | 23:20 | [facility] | | | | | chloride | | - [facility] | | | | | measurement | | [facility] | | | | | (moles/volum | | Hospital | | | | | e) | | | | | | + + + +------+ + + + + | Result panel 128 | + + + + + +------+ + + | Serum or | 2025-06-28 | | 23 | (missing) | (missing) | | plasma | 23:20 | [facility] | | | | | carbon | | - [facility] | | | | | dioxide, | | [facility] | | | | | total | | Hospital | | | | | measurement | | | | | | | (moles/volum | | | | | | | e) | | | | | | + + + +------+ + + + + | Result panel 129 | + + + + + +--------+ + + | Serum or | 2025-06-28 | | 16.4 | (missing) | (missing) | | plasma anion | 23:20 | [facility] | | | | | gap 4 | [facility] - [facility] | | [facility] | [facility] | | | | + + + +--------+ + + + + | Result panel 130 | + + + + + +--------+ + + | Serum or | 2025-06-28 | | 10.3 | (missing) | (missing) | | plasma | 23:20 | [facility] | | | | | calcium | [facility] | | | | (mass/volume | | [facility] | | | | | ) | | | | | | + + + +--------+ + + + + | Result panel 131 | + + + + + +-------+ + + | Serum or | 2025-06-28 | | 1.7 | (missing) | (missing) | | plasma | 23:20 | [facility] | | | | | magnesium | [facility] | | | | (mass/volume | | [facility] | | | | | ) | | | | | | + + + +-------+ + + + + | Result panel 132 | + + + + + +-------+ + + | Serum or | 2025-06-28 | | 8.1 | (missing) | (missing) | | plasma | 23:20 | [facility] | | | | | protein | [facility] | | | | (mass/volume | | [facility] | | | | | ) | | | | | | + + + +-------+ + + + + | Result panel 133 | + + + + + +-------+ + + | Serum or | 2025-06-28 | | 3.8 | (missing) | (missing) | | plasma | 23:20 | [facility] | | | | | albumin | [facility] | | | | (mass/volume | | [facility] | | | | | ) | | | | | | + + + +-------+ + + + + | Result panel 134 | + + + + + +-------+ + + | Serum | 2025-06-28 | | 4.3 | (missing) | (missing) | | globulin | 23:20 | [facility] | | | | | measurement | [facility] | [facility] | [facility] | | | | + + + +-------+ + + + + | Result panel 135 | + + + + + +--------+ + + | Serum or | 2025-06-28 | | 0.88 | (missing) | (missing) | | plasma | 23:20 | [facility] | | | | | albumin/glob | [facility] ulin mass [facility] | | | | ratio | | [facility] | | | | + + + +--------+ + + + + | Result panel 136 | + + + + + +-------+ + + | Serum or | 2025-06-28 | | 0.4 | (missing) | (missing) | | plasma total | 23:20 | [facility] | | | | | bilirubin | [facility] | | | | (mass/volume | | [facility] | | | | | ) | | | | | | + + + +-------+ + + + + | Result panel 137 | + + + + + +------+ + + | Serum or | 2025-06-28 | | 17 | (missing) | (missing) | | plasma | 23:20 | [facility] | | | | | aspartate | [facility] aminotransfe | | [facility] | | | | | rase | | [facility] | | | | | measurement | | | | | | | (enzymatic | | | | | | | activity/vol | | | | | | | ume) | | | | | | + + + +------+ + + + + | Result panel 138 | + + + + + +------+ + + | Serum or | 2025-06-28 | | 28 | (missing) | (missing) | | plasma | 23:20 | [facility] | | | | | alanine | [facility] aminotransfe | | [facility] | | | | rase | | [facility] | | | | | measurement | | | | | | | (enzymatic | | | | | | | activity/vol | | | | | | | ume) | | | | | | + + + +------+ + + + + | Result panel 139 | + + + + + +-------+ + + | Serum or | 2025-06-28 | | 133 | (missing) | (missing) | | plasma | 23:20 | [facility] | | | | | alkaline [facility] | [facility] | | | | | (enzymatic | | | | | | | activity/vol | | | | | | | ume) | | | | | | + + + +-------+ + + + + | Result panel 140 | + + + + + +------+ + + | Serum or | 2025-06-28 | | 28 | (missing) | (missing) | | plasma | 23:20 | [facility] | | | | | lipase | [facility] | | | | (enzymatic | | [facility] | | | | | activity/vol | | | | | | | ume) | | | | | | + + + +------+ + + + + | Result panel 141 | + + + + + +---------+ + + | WBC # Bld | 2025-06-28 | | 14.49 | (missing) | (missing) | | Auto | 23:20:07 | [facility] | | | | + + + +---------+ + + + + | Result panel 142 | + + + + + +--------+ + + | RBC # Bld | 2025-06-28 | | 5.58 | (missing) | (missing) | | Auto | 23:20:07 | [facility] | | | | + + + +--------+ + + + + | Result panel 143 | + + + + + +--------+ + + | Hgb | 2025-06-28 | | 16.4 | (missing) | (missing) | | Bld-mCnc | 23:20:07 | [facility] | | | | + + + +--------+ + + + + | Result panel 144 | + + + + + +--------+ + + | Hct VFr.DF | 2025-06-28 | | 48.6 | (missing) | (missing) | | Bld Auto | 23:20:07 | [facility] | | | | + + + +--------+ + + + + | Result panel 145 | + + + + + +--------+ + + | RBC Auto | 2025-06-28 | | 87.1 | (missing) | (missing) | | | 23:20:07 | [facility] | | | | + + + +--------+ + + + + | Result panel 146 | + + + + + +--------+ + + | MCH RBC Qn | 2025-06-28 | | 29.4 | (missing) | (missing) | | Auto | 23:20:07 | [facility] | | | | + + + +--------+ + + + + | Result panel 147 | + + + + + +--------+ + + | MCHC RBC | 2025-06-28 | | 33.7 | (missing) | (missing) | | Auto-EntMCnc | 23:20:07 | [facility] | | | | + + + +--------+ + + + + | Result panel 148 | + + + + + +-------+ + + | Platelet # | 2025-06-28 | | 212 | (missing) | (missing) | | Bld Auto | 23:20:07 | [facility] | | | | + + + +-------+ + + + + | Result panel 149 | + + + + + +--------+ + + | Neutrophils | 2025-06-28 | | 90.0 | (missing) | (missing) | | NFr Bld | 23:20:07 | [facility] | | | | | Auto | [facility] | | | | + + + +--------+ + + + + | Result panel 150 | + + + + + +-------+ + + | Lymphocytes | 2025-06-28 | | 3.2 | (missing) | (missing) | | NFr Bld | 23:20:07 | [facility] | | | | | Auto | [facility] | | | | + + + +-------+ + + + + | Result panel 151 | + + + + + +-------+ + + | Monocytes | 2025-06-28 | | 5.9 | (missing) | (missing) | | NFr Bld Auto | 23:20:07 | [facility] | | | | + + + +-------+ + + + + | Result panel 152 | + + + + + +-------+ + + | Eosinophil | 2025-06-28 | | 0.2 | (missing) | (missing) | | NFr Bld Auto | 23:20:07 | [facility] | | | | + + + +-------+ + + + + | Result panel 153 | + + + + + +-------+ + + | Basophils | 2025-06-28 | | 0.3 | (missing) | (missing) | | NFr Bld Auto | 23:20:07 | [facility] | | | | + + + +-------+ + + + + | Result panel 154 | + + + + + +-------+---------+ + | Glucose | 2025-06-28 | | 207 | mg/dL | (missing) | | Isidro-Angela | 23:20:07 | [facility] | | | | + + + +-------+---------+ + + + | Result panel 155 | + + + + + +------+---------+ + | BUN | 2025-06-28 | | 22 | mg/dL | (missing) | | SerPl-mCnc | 23:20:07 | [facility] | | | | + + + +------+---------+ + + + | Result panel 156 | + + + + + +--------+---------+ + | Creat | 2025-06-28 | | 1.42 | mg/dL | (missing) | | SerPl-Angela | 23:20:07 | [facility] | | | | + + + +--------+---------+ + + + | Result panel 157 | + + + + + +------+ + + | eGFRcr | 2025-06-28 | | 51 | (missing) | (missing) | | SerPlBld | 23:20:07 | [facility] | | | | | CKD-EPI 2020 | [facility] | | | | + + + +------+ + + + + | Result panel 158 | + + + + + +---------+ + + | BUN/Creat | 2025-06-28 | | 15.49 | (missing) | (missing) | | SerPl | 23:20:07 | [facility] | | | | + + + +---------+ + + + + | Result panel 159 | + + + + + +-------+ + + | Sodium | 2025-06-28 | | 134 | (missing) | (missing) | | SerPl-sCnc | 23:20:07 | [facility] | | | | + + + +-------+ + + + + | Result panel 160 | + + + + + +-------+ + + | Potassium | 2025-06-28 | | 4.4 | (missing) | (missing) | | SerPl-sCnc | 23:20:07 | [facility] | | | | + + + +-------+ + + + + | Result panel 161 | + + + + + +------+ + + | Chloride | 2025-06-28 | | 99 | (missing) | (missing) | | SerPl-sCnc | 23:20:07 | [facility] | | | | + + + +------+ + + + + | Result panel 162 | + + + + + +------+ + + | CO2 | 2025-06-28 | | 23 | (missing) | (missing) | | SerPl-sCnc | 23:20:07 | [facility] | | | | + + + +------+ + + + + | Result panel 163 | + + + + + +--------+ + + | Anion Gap | 2025-06-28 | | 16.4 | (missing) | (missing) | | SerPl | 23:20:07 | [facility] | | | | | Calculated.4 | [facility] | | | | + + + +--------+ + + + + | Result panel 164 | + + + + + +--------+---------+ + | Calcium | 2025-06-28 | | 10.3 | mg/dL | (missing) | | SerPl-mCnc | 23:20:07 | [facility] | | | | + + + +--------+---------+ + + + | Result panel 165 | + + + + + +-------+---------+ + | Magnesium | 2025-06-28 | | 1.7 | mg/dL | (missing) | | Isidro-Angela | 23:20:07 | [facility] | | | | + + + +-------+---------+ + + + | Result panel 166 | + + + + + +-------+ + + | Prot | 2025-06-28 | | 8.1 | (missing) | (missing) | | SerPl-mCnc | 23:20:07 | [facility] | | | | + + + +-------+ + + + + | Result panel 167 | + + + + + +-------+ + + | Albumin | 2025-06-28 | | 3.8 | (missing) | (missing) | | SerPl-mCnc | 23:20:07 | [facility] | | | | + + + +-------+ + + + + | Result panel 168 | + + + + + +-------+ + + | Globulin | 2025-06-28 | | 4.3 | (missing) | (missing) | | Ser-mCbina | 23:20:07 | [facility] | | | | + + + +-------+ + + + + | Result panel 169 | + + + + + +--------+ + + | | 2025-06-28 | | 0.88 | (missing) | (missing) | | Albumin/Glob | 23:20:07 | [facility] | | | | | [facility] | | | | + + + +--------+ + + + + | Result panel 170 | + + + + + +-------+---------+ + | Bilirub | 2025-06-28 | | 0.4 | mg/dL | (missing) | | SerPl-mCnc | 23:20:07 | [facility] | | | | + + + +-------+---------+ + + + | Result panel 171 | + + + + + +------+ + + | AST | 2025-06-28 | | 17 | (missing) | (missing) | | SerPl-cCnc | 23:20:07 | [facility] | | | | + + + +------+ + + + + | Result panel 172 | + + + + + +------+ + + | ALT | 2025-06-28 | | 28 | (missing) | (missing) | | [facility] | 23:20:07 | [facility] | | | | + + + +------+ + + + + | Result panel 173 | + + + + + +-------+ + + | ALP | 2025-06-28 | | 133 | (missing) | (missing) | | SerPl-cCnc | 23:20:07 | [facility] | | | | + + + +-------+ + + + + | Result panel 174 | + + + + + +------+ + + | Lipase | 2025-06-28 | | 28 | (missing) | (missing) | | [facility] | 23:20:07 | [facility] | | | | + + + +------+ + + Social History + + + + | date | description | facility | + + + + | (no date) | Never smoker | [facility] | | | | [facility] | + + + + Vital Signs + + + +---------+ | date | measurement | value | units | + + + +---------+ | 2025-06-27 00:00 | BMI | 34.1 | kg/m2 | + + + +---------+ | 2025-06-27 00:00 | BP_diastolic | 91 | mmHg | + + + +---------+ | 2025-06-27 00:00 | BP_systolic | 169 | mmHg | + + + +---------+ | 2025-06-27 00:00 | heart_rate | 60 | /min | + + + +---------+ | 2025-06-27 00:00 | height_metric | 177.8 | cm | + + + +---------+ | 2025-06-27 00:00 | height_standard | 70 | in | + + + +---------+ | 2025-06-27 00:00 | o2_saturation | 97 | % | + + + +---------+ | 2025-06-27 00:00 | respiration_rate | 24 | /min | + + + +---------+ | 2025-06-27 00:00 | | 97.3 | F | | | temperature_standar | | | | | d | | | + + + +---------+ | 2025-06-27 00:00 | weight_metric | 107.901 | kg | + + + +---------+ | 2025-06-27 00:00 | weight_standard | 237.881 | lb | + + + +---------+ | 2025-06-28 00:00 | BMI | 34.8 | kg/m2 | + + + +---------+ | 2025-06-28 00:00 | height_metric | 177.8 | cm | + + + +---------+ | 2025-06-28 00:00 | height_standard | 70 | in | + + + +---------+ | 2025-06-28 00:00 | weight_metric | 109.999 | kg | + + + +---------+ | 2025-06-28 00:00 | weight_standard | 242.506 | lb | + + + +---------+ | 2025-06-29 00:00 | BP_diastolic | 74 | mmHg | + + + +---------+ | 2025-06-29 00:00 | BP_systolic | 138 | mmHg | + + + +---------+ | 2025-06-29 00:00 | heart_rate | 60 | /min | + + + +---------+ | 2025-06-29 00:00 | o2_saturation | 95 | % | + + + +---------+ | 2025-06-29 00:00 | respiration_rate | 14 | /min | + + + +---------+ | 2025-06-29 00:00 | | 98.1 | F | | | temperature_standar | | | | | d | | | + + + +---------+"
[~2025-07-22 13:09] MED LIST changes: +ADULT ASPIRIN R81 MG PO; -GLUCOPHAGE500 MG PO; +MAGNESIUM OXID400 M1 PO; +METFORMIN HCL500 MG PO; +OMEPRAZOLE40 MG PO; +ONDANSETRON ODT4 MG PO; -PRILOSEC OTC20 MG PO; -VAZALORE81 MG PO
[2025-07-22] MEDS ORDERED: SODIUM CHLORIDE 0.9% 500 ML IV ONE (14:15)
[2025-07-22 14:40] LABS: BASOPHILS 0.5 % (0.2-1.2); EOSINOPHILS 2.0 % (0.8-7.0); LYMPHOCYTES 13.6 % (21.8-53.1); MCH 29.1 PG (25.7-32.2); MCHC 33.3 g/dL (32.3-36.5); MCV 87.5 fL (79.0-92.2); MONOCYTES 8.1 % (5.3-12.2); NEUTROPHILS 75.3 % (34.0-67.9); RBC 5.12 M/uL (4.63-6.08)
[2025-07-22 15:00] LABS: ALT (SGPT) 22.0 U/L (14-59); AST (SGOT) 12.0 U/L (15-37); GLOMERULAR FILTRATION RATE,EST 64.0 mL/min (>60); PROTEIN, TOTAL 7.5 g/dL (6.4-8.2); UREA NITROGEN 18.0 mg/dL (7-18)
[2025-07-22] MEDS ORDERED: SODIUM CHLORIDE 0.9% 1,000 ML IV ONE (16:00)
[2025-07-22 16:03] LABS: BLOOD/HGB, URINE TRACE-I (Negative); KETONE, URINE NEGATIVE (Negative); LEUK ESTERASE, URINE NEGATIVE (negative); NITRITE, URINE NEGATIVE (negative)
[2025-07-22 16:07] LABS: EPITHELIAL CELLS, URINE SQUAMOUS 3+ /lpf (0-1+)
[2025-07-22 16:08] LABS: BACTERIA, URINE NONE SEEN /hpf (negative); CASTS, URINE NONE SEEN \\lpf; CRYSTALS, URINE NONE SEEN (0-1+); REFLEX CULTURE, URINE No (No)
[2025-07-22] MEDS ORDERED: MAGNESIUM OXIDE 400 MG TABLET PO ONE (17:15)
[2025-07-22 17:34] VITALS: BP 184/98
== END 2025-07-22 17:18 | disposition home or self-care (01) ==
LOC: ED 13:09
PROVIDERS: Emergency Medicine
DX: R53.1 Weakness (principal); E11.9 Type 2 diabetes mellitus without complications; I11.0 Hypertensive heart disease with heart failure; I50.9 Heart failure, unspecified; Z91.81 History of falling; Z86.73 Personal history of transient ischemic attack (TIA), and cerebral infarction without residual deficits; Z95.1 Presence of aortocoronary bypass graft; Z95.0 Presence of cardiac pacemaker; Z91.030 Bee allergy status; Z88.5 Allergy status to narcotic agent; Z88.8 Allergy status to other drugs, medicaments and biological substances; Z79.01 Long term (current) use of anticoagulants; Z79.82 Long term (current) use of aspirin; Z79.890 Hormone replacement therapy; Z79.899 Other long term (current) drug therapy
CPT/HCPCS: 36415; 70450; 71045; 73560; 74177; 80053; 81001; 83735; 84484; 85025; 96360; 99284-25; J7030; J7040; Q9967

== ENCOUNTER 2025-07-27 23:04 | Inpatient (IN) | payer MEDICARE, OTHER ==
[~2025-07-27] VITALS: Ht 177.8 cm; Wt 99.8 kg
--- OUTSIDE RECORDS SUMMARY | ~2025-07-27 | XMS | Continuity of Care Document ---
Demographics + + + | Address | [address] | | | [place] [address] | + + + | Preferred Language | Unknown | + + + | Marital Status | | + + + | Church Affiliation | Unknown | + + + | Race | White | + + + | Ethnic Group | Not or | + + + Author + + + | Author | [facility] | + + + | Organization | [facility] | + + + | Address | [address] | | | [place] [address] | + + + | Phone | | + + + Care Team Providers + + + + | Care Personal Development Coach Name | Role | Phone | + [...] + + + + + + | 2025-07-22 | codeine | [facility] | (no reaction) | (no severity) | | 00:00 | | [facility] | | | + + + + + + | 2025-06-27 | Hydrocodone | [facility] - | (no reaction) | Mild | | 00:00 | | [facility] [...] + + + + + + | 2025-07-22 | hydrocodone | [facility] - | (no [...] severity) | | 00:00 | | [facility] | | | + + + + + + | 2025-07-22 | fenofibrate | [facility] - | (no [...] + + + + + + | 2025-07-22 | venom-wasp | [facility] - | (no [...] (no date) | No vaccine administered | [facility] | | | | [facility] | + + + + Medications + + + + | date | description | facility | + + + + | 2025-06-28 00:00 | ONDANSETRON | [facility] | | | | [facility] | + + + + | 2025-06-29 00:00 | ONDANSETRON | [facility] | | | | [facility] | + + + + | 2025-06-28 00:00 | ondansetron 4 MG | [facility] | | | Disintegrating Oral Tablet | [facility] | + + + + | 2025-06-29 00:00 | ondansetron 4 MG | [facility] | | | Disintegrating Oral Tablet | [facility] | + + + + | (no date) | APIXABAN | [facility] | | | | [facility] | + + + + | (no date) | apixaban 5 MG Oral Tablet | [facility] | | | [Eliquis] | [facility] | + + + + | (no date) | MELOXICAM | [facility] | | | | [facility] | + + + + | (no date) | meloxicam 15 MG Oral | [facility] | | | Tablet | [facility] | + + + + | (no date) | Microencapsulated | [facility] | | | potassium chloride 20 MEQ | [facility] | | | Extended Release | | + + + + | (no date) | POTASSIUM CHLORIDE | [facility] | | | | [facility] | + + + + | (no date) | MAGNESIUM OXIDE | [facility] | | | | [facility] | + + + + | 2025-06-28 00:00 | Magnesium Oxide | [facility] | | | | [facility] | + + + + | 2025-06-29 00:00 | Magnesium Oxide | [facility] | | | | [facility] | + + + + | (no date) | magnesium oxide 400 MG | [facility] | | | Oral Tablet | [facility] | + + + + | 2025-06-28 00:00 | magnesium oxide 400 MG | [facility] | | | Oral Tablet | [facility] | + + + + | 2025-06-29 00:00 | magnesium oxide 400 MG | [facility] | | | Oral Tablet | [facility] | + + + + | (no date) | IRBESARTAN | [facility] | | | | [facility] | + + + + | (no date) | irbesartan 75 MG Oral | [facility] | | | Tablet | [facility] | + + + + | (no date) | Aspirin | [facility] | | | | [facility] | + + + + | (no date) | aspirin 81 MG Oral Capsule | [facility] | | | [Vazalore] | [facility] | + + + + | (no date) | FERROUS SULFATE | [facility] | | | | [facility] | + + + + | (no ) | ferrous sulfate 325 MG | [facility] | | | Oral Tablet | [facility] | + + + + | (no ) | GLIPIZIDE | [facility] | | | | [facility] | + + + + | (no date) | glipizide 5 MG Oral Tablet | [facility] | | | | [facility] | + + + + | (no date) | Ascorbic Acid/Ascorbate | [facility] | | | Sodium | [facility] | + + + + | (no date) | ascorbic acid 500 MG | [facility] | | | Chewable Tablet | [facility] | + + + + | (no date) | FUROSEMIDE | [facility] | | | | [facility] | + + + + | (no ) | furosemide 40 MG Oral | [facility] | | | Tablet | [facility] | + + + + | (no date) | OMEPRAZOLE MAGNESIUM | [facility] | | | | [facility] | + + + + | (no date) | omeprazole 20 MG Delayed | [facility] | | | Release Oral Tablet | [facility] | + + + + | (no date) | Cholecalciferol (Vitamin | [facility] | | | D3) | [facility] | + + + + | (no date) | cholecalciferol 0.01 MG | [facility] | | | Oral Capsule | [facility] | + + + + | (no date) | AMIODARONE HCL | [facility] | | | | [facility] | + + + + | (no date) | amiodarone hydrochloride | [facility] | | | 200 MG Oral Tablet | [facility] | + + + + | (no date) | AMIODARONE HCL | [facility] | | | | [facility] | + + + + | (no date) | amiodarone hydrochloride | [facility] | | | 400 MG Oral Tablet | [facility] | | | [Pacerone] | | + + + + | (no ) | metFORMIN HCL | [facility] | | | | [facility] | + + + + | (no date) | metformin hydrochloride | [facility] | | | 500 MG Oral Tablet | [facility] | | | [Glucophage] | | + + + + | (no date) | TAMSULOSIN HCL | [facility] | | | | [facility] | + + + + | (no date) | tamsulosin hydrochloride | [facility] | | | 0.4 MG Oral Capsule | [facility] | + + + + | (no ) | 24 HR metoprolol succinate | [facility] | | | 100 MG Extended Release | [facility] | | | Oral Tabl | | + + + + | (no ) | METOPROLOL SUCCINATE | [facility] | | | | [facility] | + + + + | (no ) | 24 HR metoprolol succinate | [facility] | | | 50 MG Extended Release | [facility] | | | Oral Table | | + + + + | (no date) | METOPROLOL SUCCINATE | [facility] | | | | [facility] | + + + + | (no date) | LEVOTHYROXINE SODIUM | [facility] | | | | [facility] | + + + + | (no date) | levothyroxine sodium 0.175 | [facility] | | | MG Oral Tablet [Unithroid] | [facility] | | | | | + + + + Problems + + + + | date | description | facility | + + + + | 2025-06-27 00:00 | Near syncope | [facility] | | | | [facility] | + + + + | 2025-06-27 00:00 | Pre-syncope | [facility] | | | | [facility] | + + + + | 2025-06-28 00:00 | Hypomagnesemia | [facility] | | | | [facility] | + + + + | 2025-06-28 00:00 | Dehydration | [facility] | | | | [facility] | + + + + | 2025-07-22 00:00 | Weakness | [facility] | | | | [facility] | + + + + Procedures No information. Results/Labs +--------+--------+ +---------+--------+---------+ | test | date | facility | value | unit | notes | +--------+--------+ +---------+--------+---------+ + + | Result panel 1 | + + + + + +---------+ [...] 2 | + + + + + +-------+ [...] 3 | + + + + + +-------+ [...] 4 | + + + + + +-------+ [...] 5 | + + + + + +------+ [...] 9 | + + + + + +-------+ [...] 10 | + + + + + +-------+ [...] 11 | + + + + + +--------+ [...] 13 | + + + + + +------+ [...] 14 | + + + + + +------+ [...] 15 | + + + + + +-------+ [...] 17 | + + + + + +--------+ [...] 18 | + + + + + +--------+ [...] 19 | + + + + + +--------+ [...] 20 | + + + + + +--------+ [...] 21 | + + + + + +--------+ [...] 22 | + + + + + +--------+ [...] 23 | + + + + + +-------+ [...] 25 | + + + + + +--------+ [...] 28 | + + + + + +-------+ [...] 31 | + + + + + +--------+ [...] 32 | + + + + + +------+ [...] 33 | + + + + + + [...] 34 | + + + + + +---------+ [...] 35 | + + + + + +---------+ [...] 38 | + + + + + + [...] 39 | + + + + + + [...] 40 | + + + + + +-------+ [...] 41 | + + + + + +-------+ [...] 44 | + + + + + + [...] 45 | + + + + + +-------+ [...] 46 | + + + + + +-------+ [...] 47 | + + + + + + [...] 48 | + + + + + + [...] 51 | + + + + + +------+ [...] 54 | + + + + + +-------+ [...] 56 | + + + + + +--------+ [...] 57 | + + + + + +-------+ [...] 58 | + + + + + +--------+ + + | Troponin I | 2025-06-27 | | 48.6 | (missing) | (missing) | | [facility] | 17:07:07 | [facility] | | | | | HS[facility] | | [...] 60 | + + + + + + [...] 61 | + + + + + +---------+ [...] 64 | + + + + + + [...] 65 | + + + + + + [...] 67 | + + + + + +-------+ [...] 68 | + + + + + +-------+ [...] 70 | + + + + + + [...] 72 | + + + + + +--------+ [...] 73 | + + + + + +-------+ [...] 76 | + + + + + +--------+ [...] 78 | + + + + + +------+ [...] 80 | + + + + + + [...] 81 | + + + + + +---------+ [...] + + + + + + | Bilelidiaub Ur | 2025-06-28 | | NEGATIVE | [...] + + + + + + | Tiarra Ur | 2025-06-28 | | NEGATIVE | (missing) | (missing) | | Ql Strip | 22:40:07 | [facility] | | | | | | | - | | | | [...] 86 | + + + + + + [...] 88 | + + + + + +-------+ + + | Prot Ur | 2025-06-28 | | 100 | (missing) | (missing) | | Strip-mCnc | 22:40:07 | [facility] | | | [...] [facility] | [facility] | [facility] | | | | [...] 91 | + + + + + + [...] 92 | + + + + + +--------+ [...] 93 | + + + + + +-------+ [...] 95 | + + + + + + [...] 96 | + + + + + +--------+ [...] 97 | + + + + + + [...] 98 | + + + + + +------+ + + | Bacteria Ur | 2025-06-28 | | No | (missing) | (missing) | | Cult | 22:40:07 | [facility] | | | | | | | [...] | | 2019 novel | | - | | | | | coronavirus | [...] 107 | + + + + + + [...] 108 | + + + + + + [...] 109 | + + + + + + [...] 110 | + + + + + + + + + | FLUBV RNA | 2025-06-28 | | NEGATIVE | (missing) | (missing) | | Resp Ql | 23::07 | [facility] | | | | | DADA+probe [facility] | | | | + + + + + + + + + | Result panel 111 | + + + + + + + + + | RSV RNA | 2025-06-28 | | NEGATIVE | (missing) | (missing) | | Islt Ql | 23::07 | [facility] | | | | | DADA+probe [facility] | | | | + + + + + + + + + | Result panel 112 | + + + + + +------+ [...] 113 | + + + + + +---------+ [...] 114 | + + + + + +--------+ [...] 116 | + + + + + +--------+ [...] 117 | + + + + + +--------+ [...] 118 | + + + + + +--------+ [...] 119 | + + + + + +--------+ [...] 121 | + + + + + +--------+ [...] 122 | + + + + + +-------+ [...] 123 | + + + + + +-------+ [...] 124 | + + + + + +-------+ [...] 128 | + + + + + +--------+ [...] 129 | + + + + + +------+ [...] 130 | + + + + + +---------+ [...] 133 | + + + + + +------+ [...] 134 | + + + + + +------+ [...] 136 | + + + + + +--------+ [...] 137 | + + + + + +-------+ [...] 138 | + + + + + +-------+ [...] 140 | + + + + + +-------+ [...] 141 | + + + + + +--------+ [...] 142 | + + + + + +-------+ [...] 143 | + + + + + +------+ [...] 144 | + + + + + +------+ [...] 145 | + + + + + +-------+ [...] 146 | + + + + + +------+ [...] 147 | + + + + + +---------+ [...] 148 | + + + + + +--------+ [...] 150 | + + + + + +--------+ [...] 151 | + + + + + +--------+ [...] 152 | + + + + + +--------+ [...] 153 | + + + + + +--------+ [...] 154 | + + + + + +-------+ [...] + + + + | Result panel 155 | + + + + + +--------+ [...] + + + + | Result panel 156 | + + + + + +-------+ [...] + + + + | Result panel 157 | + + + + + +-------+ [...] 158 | + + + + + +-------+ [...] 160 | + + + + + +-------+---------+ + | Glucose | 2025-06-28 | | 207 | mg/dL | (missing) | | SerPl-m[facility]nc | 23:20:07 | [facility] | | | | + + + +-------+---------+ + + + | Result panel 161 | + + + + + +------+---------+ [...] +------+---------+ + + + | Result panel 162 | + + + + + +--------+---------+ + | Creat | 2025-06-28 | | 1.42 | mg/dL | (missing) | | [facility] | 23:20:07 | [facility] | | | | + + + +--------+---------+ + + + | Result panel 163 | + + + + + +------+ [...] 164 | + + + + + +---------+ [...] + + + + | Result panel 165 | + + + + + +-------+ [...] + + + + | Result panel 166 [...] 167 | + + + + + +------+ [...] 168 | + + + + + +------+ [...] 170 | + + + + + +--------+---------+ [...] +--------+---------+ + + + | Result panel 171 | + + + + + +-------+---------+ + | Magnesium | 2025-06-28 | | 1.7 | mg/dL | (missing) | | [facility] | 23:20:07 | [facility] | | | | + + + +-------+---------+ + + + | Result panel 172 | + + + + + +-------+ [...] 174 | + + + + + +-------+ + + | Globulin | 2025-06-28 | | 4.3 | (missing) | (missing) | | [facility] | 23:20:07 | [facility] | | | | + + + +-------+ + + + + | Result panel 175 | + + + + + +--------+ [...] + + + + | Result panel 176 | + + + + + +-------+---------+ [...] +-------+---------+ + + + | Result panel 177 | + + + + + +------+ [...] + + + + | Result panel 178 | + + + + + +------+ + + | ALT | 2025-06-28 | | 28 | (missing) | (missing) | | [facility] | 23:20:07 | [facility] | | | | + + + +------+ + + + + | Result panel 179 | + + + + + +-------+ [...] + + + + | Result panel 180 | + + + + + +------+ + + | Lipase | 2025-06-28 | | 28 | (missing) | (missing) | | [facility] | 23:20:07 | [facility] | | | | + + + +------+ + + + + | Result panel 181 | + + + + + +--------+ + + | Blood | 2025-07-22 | | 8.53 | (missing) | (missing) | | leukocytes | 14:35 | [facility] | | | | | automated | [facility] | count | | [facility] | | | | | (number/volu | | Hospital | | | | | me) | | | | | | + + + +--------+ + + + + | Result panel 182 | + + + + + +--------+ + + | Blood | 2025-07-22 | | 5.12 | (missing) | (missing) | | erythrocytes | 14:35 | [facility] | | | | | automated | | - [facility] | count | | [facility] | | | | (number/volu | | Hospital | | | | | me) | | | | | | + + + +--------+ + + + + | Result panel 183 | + + + + + +--------+ + + | Blood | 2025-07-22 | | 14.9 | (missing) | (missing) | | hemoglobin | 14:35 | [facility] | | | | | measurement | | [facility] | (mass/volume | [facility] ) | [facility] | | | | + + + +--------+ + + + + | Result panel 184 | + + + + + +--------+ + + | Automated | 2025-07-22 | | 44.8 | (missing) | (missing) | | blood | 14:35 | [facility] | | | | | hematocrit | [facility] | | | | + + + +--------+ + + + + | Result panel 185 | + + + + + +--------+ + + | Automated | 2025-07-22 | | 87.5 | (missing) | (missing) | | erythrocyte | 14:35 | [facility] | | | | | mean | | [facility] | | [facility] | | corpuscular | | [facility] | | | | volume | | Hospital | | | | + + + +--------+ + + + + | Result panel 186 | + + + + + +--------+ + + | Automated | 2025-07-22 | | 29.1 | (missing) | (missing) | | erythrocyte | 14:35 | [facility] | | | | | [...] + + + + | Result panel 187 | + + + + + +--------+ + + | Automated | 2025-07-22 | | 33.3 | (missing) | (missing) | | erythrocyte | 14:35 | [facility] | | | | | [...] + + + + | Result panel 188 | + + + + + +-------+ + + | Automated | 2025-07-22 | | 274 | (missing) | (missing) | | blood | 14:35 | [facility] | | | | | platelet | [facility] | count | | [facility] | | | | | (count/volum | | Hospital | | | | | e) | | | | | | + + + +-------+ + + + + | Result panel 189 | + + + + + +--------+ + + | Automated | 2025-07-22 | | 75.3 | (missing) | (missing) | | blood | 14:35 | [facility] | | | | | neutrophil | [facility] | [facility] | count as | | [facility] | | | | | percentage | | Hospital | | | | | of total | | | | | | | leukocytes | | | | | | + + + +--------+ + + + + | Result panel 190 | + + + + + +--------+ + + | Automated | 2025-07-22 | | 13.6 | (missing) | (missing) | | blood | 14:35 | [facility] | | | | | lymphocyte | | [facility] | [facility] | count as | | [facility] | | | | | percentage | | Hospital | | | | | ot total | | | | | | | leukocytes | | | | | | + + + +--------+ + + + + | Result panel 191 | + + + + + +-------+ + + | Automated | 2025-07-22 | | 8.1 | (missing) | (missing) | | blood | 14:35 | [facility] | | | | | monocyte | | - [facility] | | [facility] | | count as | | [facility] | | | | | percentage | | Hospital | | | | | of total | | | | | | | leukocytes | | | | | | + + + +-------+ + + + + | Result panel 192 | + + + + + +-------+ + + | Automated | 2025-07-22 | | 2.0 | (missing) | (missing) | | blood | 14:35 | [facility] | | | | | eosinophil | | - [facility] | [facility] | count as | | [facility] | | | | | percentage | | Hospital | | | | | of total | | | | | | | leukocytes | | | | | | + + + +-------+ + + + + | Result panel 193 | + + + + + +-------+ + + | Automated | 2025-07-22 | | 0.5 | (missing) | (missing) | | blood | 14:35 | [facility] | | | | | basophil | | - [facility] | count as | | [facility] | | | | | percentage | | Hospital | | | | | of total | | | | | | | leukocytes | | | | | | + + + +-------+ + + + + | Result panel 194 | + + + + + +-------+ + + | Serum or | 2025-07-22 | | 185 | (missing) | (missing) | | plasma | 14:35 | [facility] | | | | | glucose | | - [facility] | [facility] | measurement | | [facility] | | | | | (mass/volume | | Hospital | | | | | ) | | | | | | + + + +-------+ + + + + | Result panel 195 | + + + + + +------+ + + | Serum or | 2025-07-22 | | 18 | (missing) | (missing) | | plasma urea | 14:35 | [facility] | | | | | nitrogen | | - [facility] | | [facility] | | measurement | | [facility] | | | | | (mass/volume | | Hospital | | | | | ) | | | | | | + + + +------+ + + + + | Result panel 196 | + + + + + +--------+ + + | Serum or | 2025-07-22 | | 1.18 | (missing) | (missing) | | plasma | 14:35 | [facility] | | | | | creatinine | | [facility] | | [facility] | | measurement | | [facility] | | | | | (mass/volume | | Hospital | | | | | ) | | | | | | + + + +--------+ + + + + | Result panel 197 | + + + + + +------+ + + | Glomerular | 2025-07-22 | | 64 | (missing) | (missing) | | filtration | 14:35 | [facility] | | | | | [...] + + + + | Result panel 198 | + + + + + +---------+ + + | Serum or | 2025-07-22 | | 15.25 | (missing) | (missing) | | plasma urea | 14:35 | [facility] | | | | | nitrogen/cre | | [facility] | [facility] | | atinine mass | | [facility] | | | | | ratio | | Hospital | | | | + + + +---------+ + + + + | Result panel 199 | + + + + + +-------+ + + | Serum or | 2025-07-22 | | 134 | (missing) | (missing) | | plasma | 14:35 | [facility] | | | | | sodium | | - [facility] | | [facility] | | measurement | | [facility] | | | | | (moles/volum | | Hospital | | | | | e) | | | | | | + + + +-------+ + + + + | Result panel 200 | + + + + + +-------+ + + | Serum or | 2025-07-22 | | 3.9 | (missing) | (missing) | | plasma | 14:35 | [facility] | | | | | potassium | | - [facility] | [facility] | measurement | | [facility] | | | | | (moles/volum | | Hospital | | | | | e) | | | | | | + + + +-------+ + + + + | Result panel 201 | + + + + + +-------+ + + | Serum or | 2025-07-22 | | 100 | (missing) | (missing) | | plasma | 14:35 | [facility] | | | | | chloride | | - | | | | | measurement | | [facility] | | (moles/volum | | Hospital | | | | | e) | | | | | | + + + +-------+ + + + + | Result panel 202 | + + + + + +------+ + + | Serum or | 2025-07-22 | | 25 | (missing) | (missing) | | plasma | 14:35 | [facility] | | | | | [...] + + + + | Result panel 203 | + + + + + +--------+ + + | Serum or | 2025-07-22 | | 12.9 | (missing) | (missing) | | plasma anion | 14:35 | [facility] | | | | | gap 4 | [facility] | | | | + + + +--------+ + + + + | Result panel 204 | + + + + + +-------+ + + | Serum or | 2025-07-22 | | 9.9 | (missing) | (missing) | | plasma | 14:35 | [facility] | | | | | calcium | | [facility] | [facility] | measurement | | [facility] | | | | | (mass/volume | | Hospital | | | | | ) | | | | | | + + + +-------+ + + + + | Result panel 205 | + + + + + +-------+ + + | Serum or | 2025-07-22 | | 1.7 | (missing) | (missing) | | plasma | 14:35 | [facility] | | | | | magnesium | | [facility] | measurement | | [facility] | | | | (mass/volume | | Hospital | | | | | ) | | | | | | + + + +-------+ + + + + | Result panel 206 | + + + + + +-------+ + + | Serum or | 2025-07-22 | | 7.5 | (missing) | (missing) | | plasma | 14:35 | [facility] | | | | | protein | | [facility] | measurement | | [facility] | | | | (mass/volume | | Hospital | | | | | ) | | | | | | + + + +-------+ + + + + | Result panel 207 | + + + + + +-------+ + + | Serum or | 2025-07-22 | | 3.4 | (missing) | (missing) | | plasma | 14:35 | [facility] | | | | | albumin | | [facility] | measurement | | [facility] | | | | | (mass/volume | | Hospital | | | | | ) | | | | | | + + + +-------+ + + + + | Result panel 208 | + + + + + +-------+ + + | Serum | 2025-07-22 | | 4.1 | (missing) | (missing) | | globulin | 14:35 | [facility] | | | | | measurement | [facility] | (mass/volume | [facility] ) | | [facility] | | | | + + + +-------+ + + + + | Result panel 209 | + + + + + +--------+ + + | Serum or | 2025-07-22 | | 0.83 | (missing) | (missing) | | plasma | 14:35 | [facility] | | | | | albumin/glob | [facility] | ulin mass | | [facility] | | | | | ratio | | Hospital | | | | + + + +--------+ + + + + | Result panel 210 | + + + + + +-------+ + + | Serum or | 2025-07-22 | | 0.6 | (missing) | (missing) | | plasma total | 14:35 | [facility] | | | | | bilirubin | [facility] | measurement | | [facility] | | | | (mass/volume | | Hospital | | | | | ) | | | | | | + + + +-------+ + + + + | Result panel 211 | + + + + + +------+ + + | Serum or | 2025-07-22 | | 12 | (missing) | (missing) | | plasma | 14:35 | [facility] | | | | | [...] + + + + | Result panel 212 | + + + + + +------+ + + | Serum or | 2025-07-22 | | 22 | (missing) | (missing) | | plasma | 14:35 | [facility] | | | | | [...] + + + + | Result panel 213 | + + + + + +-------+ + + | Serum or | 2025-07-22 | | 132 | (missing) | (missing) | | plasma | 14:35 | [facility] | | | | | [...] + + + + | Result panel 214 | + + + + + +--------+ + + | Serum or | 2025-07-22 | | 70.0 | (missing) | (missing) | | plasma | 14:35 | [facility] | | | | | [...] + + + + | Result panel 215 | + + + + + + + + + | Urine total | 2025-07-22 | | NEGATIVE | (missing) | (missing) | | bilirubin | 15:58 | [facility] | | | | | detection by | [facility] | test strip [facility] | | | | + + + + + + + + + | Result panel 216 | + + + + + + + + + | Urine | 2025-07-22 | | NEGATIVE | (missing) | (missing) | | ketones | 15:58 | [facility] | | | | | detection by | [facility] | test strip | | [facility] | | | | + + + + + + + + + | Result panel 217 | + + + + + +---------+ + + | Specific | 2025-07-22 | | 1.020 | (missing) | (missing) | | gravity ur | 15:58 | [facility] | | | | | dipstick | | [facility] | | | [facility] | | | | + + + +---------+ + + + + | Result panel 218 | + + + + + + + + + | Urine | 2025-07-22 | | TRACE-I | (missing) | (missing) | | hemoglobin | 15:58 | [facility] | | | | | detection by | [facility] | test strip | [facility] | | | | + + + + + + + + + | Result panel 219 | + + + + + +-------+ + + | Urine pH | 2025-07-22 | | 5.5 | (missing) | (missing) | | measurement | 15:58 | [facility] | | | | | by test | | [facility] | | strip | [facility] | | | | + + + +-------+ + + + + | Result panel 220 | + + + + + +------+ + + | Protein | 2025-07-22 | | 30 | (missing) | (missing) | | urine test | 15:58 | [facility] | | | | | strip | | [facility] | [facility] | | | | + + + +------+ + + + + | Result panel 221 | + + + + + + + + + | | 2025-07-22 | | NORMAL | (missing) | (missing) | | Urobilinogen | 15:58 | [facility] | | | | | [...] + + + + | Result panel 222 | + + + + + + + + + | Urine | 2025-07-22 | | NEGATIVE | (missing) | (missing) | | nitrite | 15:58 | [facility] | | | | | detection by | | - | | | | | test strip | | [facility] | | | | + + + + + + + + + | Result panel 223 | + + + + + + + + + | Urine | 2025-07-22 | | NEGATIVE | (missing) | (missing) | | leukocyte | 15:58 | [facility] | | | | | esterase | | [facility] | detection by | | [facility] | | | dipstick | | [facility] | | | | + + + + + + + + + | Result panel 224 | + + + + + +-------+ + + | Automated | 2025-07-22 | | 2-3 | (missing) | (missing) | | urine | 15:58 | [facility] | | | | | [...] + + + + | Result panel 225 | + + + + + +-------+ + + | Automated | 2025-07-22 | | 0-1 | (missing) | (missing) | | urine | 15:58 | [facility] | | | | | [...] + + + + | Result panel 226 | + + + + + + + + + | Automated | 2025-07-22 | | SQUAMOUS 3+ | (missing) | (missing) | | urine | 15:58 | [facility] | | | | | [...] + + + + | Result panel 227 | + + + + + + + + + | Crystal | 2025-07-22 | | NONE SEEN | (missing) | (missing) | | typing in | 15:58 | [facility] | | | | | urine | | [facility] | sediment by | [facility] | | | light | | [facility] | | | | | microscopy | | | | | | + + + + + + + + + | Result panel 228 | + + + + + + + + + | Automated | 2025-07-22 | | NONE SEEN | (missing) | (missing) | | urine | 15:58 | [facility] | | | | | [...] + + + + | Result panel 229 | + + + + + + + + + | Automated | 2025-07-22 | | NONE SEEN | (missing) | (missing) | | casts count | 15:58 | [facility] | | | | | [...] + + + + | Result panel 230 | + + + + + +------+ + + | Reflexive | 2025-07-22 | | No | (missing) | (missing) | | urine | 15:58 | [facility] | | | | | bacterial | | - [facility] | culture | [facility] | | | | + + + +------+ + + + + | Result panel 231 | + + + + + + + + + | Urinalysis | 2025-07-22 | | CLEAN CATCH | (missing) | (missing) | | specimen | 15:58 | [facility] | | | | | collection | | [facility] | | method | [facility] | | | | + + + + + + + + + | Result panel 232 | + + + + + + + + + | Color of | 2025-07-22 | | YELLOW | (missing) | (missing) | | Urine by | 15:58 | [facility] | | | | | Auto | | [facility] | | | | + + + + + + + + + | Result panel 233 | + + + + + +---------+ + + | Character | 2025-07-22 | | CLEAR | (missing) | (missing) | | of Urine | 15:58 | [facility] | | | | | | [facility] | [facility] | | | | + + + +---------+ + + + + | Result panel 234 | + + + + + +---------+ + + | Glucose | 2025-07-22 | | SMALL | (missing) | (missing) | | [Presence] | 15:58 | [facility] | | | | | in Urine by | [facility] | Test strip | [facility] | | | | + + + +---------+ + + Social History + + + + | date | description | facility | + + + + | (no date) | Never smoker | [facility] | | | | [facility] | + + + + Vital [...]
--- OUTSIDE RECORDS SUMMARY | ~2025-07-27 | XMS | Continuity of Care Document ---
Demographics + + + | Address | [address] | | | [place] [address] | + + + | Preferred Language | Unknown | + + + | Marital Status | | + + + | Adventism Affiliation | Unknown | + + + | Race | White | + + + | Ethnic Group | Not or | + + + Author + + + | Author | [facility] | + + + | Organization | [facility] | + + + | Address | [address] | | | [place] [address] | + + + | Phone | | + + + Care Team Providers + + + + | Care Research Associate Professor Name | Role | Phone | + [...] date) | No vaccine administered | [facility] | | | | [facility] | + + + + Medications + + + + | date | description | facility | + + + + | 2025-06-28 00:00 | ONDANSETRON | [facility] | | | | [facility] | + + + + | 2025-06-29 00:00 | ONDANSETRON | [facility] | | | | [facility] | + + + + | 2025-06-28 00:00 | ondansetron 4 MG | [facility] | | | Disintegrating Oral Tablet | [facility] | + + + + | 2025-06-29 00:00 | ondansetron 4 MG | [facility] | | | Disintegrating Oral Tablet | [facility] | + + + + | (no date) | APIXABAN | [facility] | | | | [facility] | + + + + | (no date) | apixaban 5 MG Oral Tablet | [facility] | | | [Eliquis] | [facility] | + + + + | (no date) | MELOXICAM | [facility] | | | | [facility] | + + + + | (no date) | meloxicam 15 MG Oral | [facility] | | | Tablet | [facility] | + + + + | (no date) | Microencapsulated | [facility] | | | potassium chloride 20 MEQ | [facility] | | | Extended Release | | + + + + | (no date) | POTASSIUM CHLORIDE | [facility] | | | | [facility] | + + + + | (no date) | MAGNESIUM OXIDE | [facility] | | | | [facility] | + + + + | 2025-06-28 00:00 | Magnesium Oxide | [facility] | | | | [facility] | + + + + | 2025-06-29 00:00 | Magnesium Oxide | [facility] | | | | [facility] | + + + + | (no date) | magnesium oxide 400 MG | [facility] | | | Oral Tablet | [facility] | + + + + | 2025-06-28 00:00 | magnesium oxide 400 MG | [facility] | | | Oral Tablet | [facility] | + + + + | 2025-06-29 00:00 | magnesium oxide 400 MG | [facility] | | | Oral Tablet | [facility] | + + + + | (no date) | IRBESARTAN | [facility] | | | | [facility] | + + + + | (no date) | irbesartan 75 MG Oral | [facility] | | | Tablet | [facility] | + + + + | (no date) | Aspirin | [facility] | | | | [facility] | + + + + | (no date) | aspirin 81 MG Oral Capsule | [facility] | | | [Vazalore] | [facility] | + + + + | (no date) | FERROUS SULFATE | [facility] | | | | [facility] | + + + + | (no ) | ferrous sulfate 325 MG | [facility] | | | Oral Tablet | [facility] | + + + + | (no ) | GLIPIZIDE | [facility] | | | | [facility] | + + + + | (no date) | glipizide 5 MG Oral Tablet | [facility] | | | | [facility] | + + + + | (no date) | Ascorbic Acid/Ascorbate | [facility] | | | Sodium | [facility] | + + + + | (no date) | ascorbic acid 500 MG | [facility] | | | Chewable Tablet | [facility] | + + + + | (no date) | FUROSEMIDE | [facility] | | | | [facility] | + + + + | (no ) | furosemide 40 MG Oral | [facility] | | | Tablet | [facility] | + + + + | (no date) | OMEPRAZOLE MAGNESIUM | [facility] | | | | [facility] | + + + + | (no date) | omeprazole 20 MG Delayed | [facility] | | | Release Oral Tablet | [facility] | + + + + | (no date) | Cholecalciferol (Vitamin | [facility] | | | D3) | [facility] | + + + + | (no date) | cholecalciferol 0.01 MG | [facility] | | | Oral Capsule | [facility] | + + + + | (no date) | AMIODARONE HCL | [facility] | | | | [facility] | + + + + | (no date) | amiodarone hydrochloride | [facility] | | | 200 MG Oral Tablet | [facility] | + + + + | (no date) | AMIODARONE HCL | [facility] | | | | [facility] | + + + + | (no date) | amiodarone hydrochloride | [facility] | | | 400 MG Oral Tablet | [facility] | | | [Pacerone] | | + + + + | (no ) | metFORMIN HCL | [facility] | | | | [facility] | + + + + | (no date) | metformin hydrochloride | [facility] | | | 500 MG Oral Tablet | [facility] | | | [Glucophage] | | + + + + | (no date) | TAMSULOSIN HCL | [facility] | | | | [facility] | + + + + | (no date) | tamsulosin hydrochloride | [facility] | | | 0.4 MG Oral Capsule | [facility] | + + + + | (no ) | 24 HR metoprolol succinate | [facility] | | | 100 MG Extended Release | [facility] | | | Oral Tabl | | + + + + | (no ) | METOPROLOL SUCCINATE | [facility] | | | | [facility] | + + + + | (no ) | 24 HR metoprolol succinate | [facility] | | | 50 MG Extended Release | [facility] | | | Oral Table | | + + + + | (no date) | METOPROLOL SUCCINATE | [facility] | | | | [facility] | + + + + | (no date) | LEVOTHYROXINE SODIUM | [facility] | | | | [facility] | + + + + | (no date) | levothyroxine sodium 0.175 | [facility] | | | MG Oral Tablet [Unithroid] | [facility] | | | | | + + + + Problems + + + + | date | description | facility | + + + + | 2025-06-27 00:00 | Near syncope | [facility] | | | | [facility] | + + + + | 2025-06-27 00:00 | Pre-syncope | [facility] | | | | [facility] | + + + + | 2025-06-28 00:00 | Hypomagnesemia | [facility] | | | | [facility] | + + + + | 2025-06-28 00:00 | Dehydration | [facility] | | | | [facility] | + + + + | 2025-07-22 00:00 | Weakness | [facility] | | | | [facility] | + + + + Procedures No [...] | | | | measurement | | [facility] | | | | | (mass/volume | [...] | | | test strip | | [facility] | | | | | | | [...] | | | | | | | [facility] | | | | | | | [...] 1.7 | mg/dL | (missing) | | [facility] | 23:20:07 | [facility] | | | [...] 28 | (missing) | (missing) | | [facility] | 23:20:07 | [facility] | | | [...] [facility] | | | | [facility] | + + + + Vital [...]
[2025-07-27 23:22] LABS: BLOOD/HGB, URINE SMALL (Negative); KETONE, URINE TRACE (Negative); LEUK ESTERASE, URINE TRACE (negative); NITRITE, URINE NEGATIVE (negative)
[2025-07-27 23:28] LABS: BACTERIA, URINE 4+ /hpf (negative); CASTS, URINE NONE SEEN \\lpf; CRYSTALS, URINE NONE SEEN (0-1+); EPITHELIAL CELLS, URINE SQUAMOUS 1+ /lpf (0-1+); REFLEX CULTURE, URINE Yes (No)
[2025-07-27 23:31] LABS: BASOPHILS 0.2 % (0.2-1.2); EOSINOPHILS 0 % (0.8-7.0); LYMPHOCYTES 3.1 % (21.8-53.1); MCH 29.3 PG (25.7-32.2); MCHC 32.7 g/dL (32.3-36.5); MCV 89.6 fL (79.0-92.2); MONOCYTES 8.9 % (5.3-12.2); NEUTROPHILS 87.2 % (34.0-67.9); RBC 4.91 M/uL (4.63-6.08)
[2025-07-27 23:46] LABS: ALT (SGPT) 20.0 U/L (14-59); AST (SGOT) 17.0 U/L (15-37); GLOMERULAR FILTRATION RATE,EST 53.0 mL/min (>60); PROTEIN, TOTAL 7.2 g/dL (6.4-8.2); UREA NITROGEN 24.0 mg/dL (7-18)
[2025-07-28] VITALS (10 sets, daily range): BP systolic 111–156; BP diastolic 36–79
[2025-07-28] MEDS ORDERED: MAGNESIUM SULFATE 4 GM/100 ML BAG IV ONE (00:30)
[2025-07-28] MEDS ORDERED: MORPHINE SULFATE 4 MG/ML VIAL IV PRN (01:00)
[2025-07-28] MEDS ORDERED: ACETAMINOPHEN 325 MG TAB PO PRN (01:00)
[2025-07-28] MEDS ORDERED: Insulin Regular, Human 100 UNIT/ML ML SUB-Q SCH (01:00)
--- NOTE | 2025-07-28 01:11 | NUR ---
CALL LIGHT ANSWERED. PT FINISHED USING COMMODE. GLOBAL CREATIVE CHAIRMAN 1PA PT WITH FWW BACK TO BED. ICE WATER REFILLED. PT STATES NO FURTHER NEEDS AT THIS TIME. CALL LIGHT WITHIN REACH.
--- NOTE | 2025-07-28 02:57 | NUR ---
PATIENT CBG OF 259 COMPLETED. PATIENT LAYING IN BED WITH EYES OPEN. AT BEDSIDE. NO NEEDS IDENTIFIED AT THIS TIME. CALL LIGHT IN REACH.
[2025-07-28] MEDS ORDERED: SODIUM CHLORIDE 0.9% 1,000 ML IV SCH (03:15)
--- NOTE | 2025-07-28 03:27 | NUR ---
5 UNITS REGULAR INSULIN ADMINISTERED PER EMAR TO LEFT ARM.
[2025-07-28 05:27] LABS: BASOPHILS 0.2 % (0.2-1.2); EOSINOPHILS 0.1 % (0.8-7.0); LYMPHOCYTES 3.6 % (21.8-53.1); MCH 29.1 PG (25.7-32.2); MCHC 33.0 g/dL (32.3-36.5); MCV 88.1 fL (79.0-92.2); MONOCYTES 7.8 % (5.3-12.2); NEUTROPHILS 87.2 % (34.0-67.9); RBC 4.88 M/uL (4.63-6.08)
[2025-07-28 05:44] LABS: ALT (SGPT) 20.0 U/L (14-59); AST (SGOT) 14.0 U/L (15-37); GLOMERULAR FILTRATION RATE,EST 57.0 mL/min (>60); PROTEIN, TOTAL 7.1 g/dL (6.4-8.2); UREA NITROGEN 21.0 mg/dL (7-18)
--- NOTE | 2025-07-28 06:04 | NUR ---
VS AND I&O'S COMPLETED AND DOCUMENTED. TETO CARE PERFORMED, NEW BREIF AND MAKE EXTERNAL CATHETER PLACED. NEW IVF BAG INFUSING WITHOUT DIFFICULTY. PATIENT WAS ABLE TO ASSIST IN TURNING IN BED WITH PROMPTING. LYING ON COUCH. NO OTHER NEEDS IDENTIFIED AT THIS TIME. TELE ON. CALL LIGHT IN REACH.
[2025-07-28] MEDS ORDERED: LEVOTHYROXINE SODIUM 175 MCG TAB PO SCH (07:00)
--- NOTE | 2025-07-28 07:16 | NUR ---
REPORT RECEIVED FROM GAYLE Interiano RN. PT IN BED, TELEMETRY LEADS PULLED OFF. THIS RN REPLACED TELEMETRY LEADS AND REPOSITIONED PT. PT HAS PUREWICK IN PLACE WITH BRIEF. IS ON COUCH IN ROOM, IS PT'S CAREGIVER AT HOME. CALL LIGHT WITHIN REACH AND BED ALARM ON D/T FALL RISK.
--- NOTE | 2025-07-28 07:35 | NUR ---
DR HEADLEY IN TO SEE PT AND HIS AND DISCUSS POC.
[2025-07-28] MEDS ORDERED: INSULIN LISPRO 100 UNIT/ML ML SUB-Q SCH (08:00)
[2025-07-28] MEDS ORDERED: IBLOOD GLUCOSE TEST STRIP 1 EA TEST VI SCH (08:00)
[2025-07-28] MEDS ORDERED: METOPROLOL SUCCINATE 100 MG TABCR PO SCH (09:00)
[2025-07-28] MEDS ORDERED: APIXABAN 5 MG TAB PO SCH (09:00)
[2025-07-28] MEDS ORDERED: PANTOPRAZOLE SODIUM 40 MG TABEC PO SCH (09:00)
[2025-07-28] MEDS ORDERED: TAMSULOSIN HCL 0.4 MG CAP PO SCH (09:00)
[2025-07-28] MEDS ORDERED: AMIODARONE HCL 200 MG TAB PO SCH (09:00)
--- NOTE | 2025-07-28 09:20 | NUR ---
PT/0T IN TO WORK WITH PT.
--- NOTE | 2025-07-28 10:34 | NUR ---
UR CLINICAL REVIEW: 2MN TASNEEM, MEETS INPT FOR UTI, TY ALTERED MENTAL STATUS, IV FLUIDS, IV ANTIBIOTICS, MAG 1.4 MEDICARE INPT 07/28/2025 @ 0324 ORDER MATCHES REG NO AUTH REQUIRED PER MEDICARE RULES PLAN TO DC TO HOME WITH CHILDREN WHEN MEDICALLY READY DC 07/30/25
--- NOTE | 2025-07-28 10:45 | NUR ---
PT REPOSITIONED IN BED, TURNING PT Q2 HRS. BED ALARM ON, IN ROOM WITH PT. CALL LIGHT WITHIN REACH.
[2025-07-28] MEDS ORDERED: ZETIA10 MG PO (11:02)
--- NOTE | 2025-07-28 11:27 | NUR ---
PT NOT AVAILABLE FOR VISIT. PROVIDED PRAYER.
[2025-07-28] MEDS ORDERED: ELIQUIS5 MG PO (11:36)
[2025-07-28] MEDS ORDERED: TRAMADOL HCL50 MG PO (11:39)
--- NOTE | 2025-07-28 11:39 | NUR ---
MED REC COMPLETE
[2025-07-28] MEDS ORDERED: PHARMACY RENAL DOSE ADJUSTMENT 1 DOSE MISC PO SCH (12:00)
--- NOTE | 2025-07-28 12:38 | NUR ---
PT RESTING IN BED, BED ALARM ON AND CALL LIGHT WITHIN REACH. PT'S IS ASSISTING WITH FEEDING. PT EATING SOFT FOODS AT THIS TIME, STATES SHE WILL LEAVE LATER AND BRING PT'S DENTURES IN WHEN SHE RETURNS.
--- NOTE | 2025-07-28 13:08 | NUR ---
PT REPORTS PATIENT FEELING SHORT OF BREATH, VS 98.3, 71. 20, 125/47 (64) 94% ON RA. PT REPOSITIONED, REPORTS FEELING BETTER AFTER. SIDERAILS UP X4, CALL HEADLEY IN REACH, BED IN LOW POSITION AND LOCKED. BED ALARM IN ACTIVATED, FALL MATS IN USE. PT AT BEDSIDE, REPORTS NO ADDITIONAL NEEDS.
--- NOTE | 2025-07-28 13:28 | NUR ---
INTO SEE PATIENT. PATIENT RESTING IN BED. AT BEDSIDE. PERSONAL HEALTH INFORMATION REVIEWED. PATIENT LIVES AT HOME WITH IN [place]. 3 STEPS INTO THE HOME AND ONE STEP DOWN IN THE HOME. PATIENT HAS A WALKER AND CANE. PATIENT HAS ALREADY PUT A REQUEST IN FOR A WHEELCHAIR WITH PCP. PATIENT REFUSES TO GO TO SNF. STATES "I DID THAT ONCE AND IT WAS AWFUL." PATIENT AND ARE MOVING [facility] WITH SON. ONCE PATIENT TO D/C THEY WILL DRIVE TO [place] AND HAVE THERE EMS DO A LIFT ASSIST INTO THE HOME.
--- NOTE | 2025-07-28 13:53 | EKG ---
[facility] [address] [place] [address] Signed Sinus rhythm with 1st degree AV block Left axis deviation Nonspecific intraventricular block Minimal voltage criteria for LVH, may be normal variant ( Pablo product ) Cannot rule out Septal infarct , age undetermined T wave abnormality, consider inferior ischemia T wave abnormality, consider anterolateral ischemia Abnormal ECG When compared with ECG of 27-JUN-2025 15:05, Sinus rhythm has replaced Electronic ventricular pacemaker Confirmed by LARRY HEADLEY MD ([id number]) on 07/28/2025 1:53:10 PM Electronically Signed By: LARRY HEADLEY 07/28/25 1353 PATIENT NAME: BECKIE GARDNER Electrocardiogram DATE OF : 48 PHYSICIAN: LARRY HEADLEY REPORT #: [id number] REPORT IS CONFIDENTIAL AND NOT TO BE RELEASED WITHOUT AUTHORIZATION
--- NOTE | 2025-07-28 14:15 | NUR ---
RT CALLED DUE TO NEW ORDER FOR REPEAT/FOLLOW-UP EKG.
--- NOTE | 2025-07-28 14:16 | NUR ---
PT RESTING IN BED WITH EYES CLOSED AND RESPIRATIONS EVEN AND UNLABORED. BED ALARM ON, FALL MATS IN PLACE, IN ROOM, CALL LIGHT WITHIN REACH.
--- NOTE | 2025-07-28 16:00 | NUR ---
PT REPOSIONED IN BED, TURNING Q2 HRS. PT'S SON HAS BEEN SITTING IN ROOM WITH PT. TETO CARE DONE, MALE PUREWICK IN PLACE. BED ALARM ON, FALL MATS IN PLACE. CALL LIGHT WITHIN REACH. NO REQUESTS AT THIS TIME.
--- NOTE | 2025-07-28 16:25 | NUR ---
DR HEADLEY CALLED AND NOTIFIED OF PT'S URINE OUTPUT OF 200 CC ON THIS SHIFT. ORDER RECEIVED FOR 250 ML NS IV BOLUS.
[2025-07-28] MEDS ORDERED: SODIUM CHLORIDE 0.9% 250 ML IV SCH ×2 (16:30→16:45)
--- NOTE | 2025-07-28 16:45 | NUR ---
EKG DONE ORDERED BY RT, DR HEADLEY IN TO SEE PT.
--- NOTE | 2025-07-28 17:25 | NUR ---
PT SITTING UP IN BED EATING DINNER WITH SON ASSISTING. CALL LIGHT WITHIN REACH AND BED ALRM ON WITH FALL MATS IN PLACE.
--- NOTE | 2025-07-28 18:16 | NUR ---
PT SITTING UP IN BED WITH SON IN ROOM. BED ALARM ON, FALL MATS PLACED, AND CALL LIGHT WTIHIN REACH. NO NEEDS IDENTIFIED AT THIS TIME.
--- NOTE | 2025-07-28 19:15 | NUR ---
REPORT RECEIVED FROM LUZ GUTIERREZ. pt RESTING IN THE BED. BOARD UPDATED. FAMILY IN RM. NO NEEDS AT THIS TIME. CALL LIGHT WITHIN REACH.
--- NOTE | 2025-07-28 19:25 | NUR ---
PATIENT WAS HAVING A HARD TIME EATING HIS DINNER DO TO NOT HAVING HIS DENTURES HERE. SO WE ORDERED HIM PROTEIN ENSURE VANILLA SHAKE. SON IN ROOM.
--- NOTE | 2025-07-28 21:15 | NUR ---
ASSESSMENT AND VITAL SIGNS DONE. pt URINE IS TEA COLORED. IV ASSESSED, WNL. IVF INFUSING PER ORDER. BG CHECKED WITH A RESULTS OF 206. SS INSULIN ADMINISTERED. SCHEDULED MEDS ADMINISTERED. PUREWICK IN PLACE. TELE LEADS PLACED ON pt. pt DENIES ANY OTHER NEEDS AT THIS TIME. CALL LIGHT WITHIN REACH.
--- NOTE | 2025-07-28 23:40 | NUR ---
IN TO CHECK ON pt. pt HAD PULLED IV AND GOWN WAS OFF. THIS RN REPLACED pt GOWN. NEW IV STARTED IN LEFT AC. pt YELLED AT STAFF AND TOLD THEM TO FK OFF DURING THE PROCEDURE. THIS RN AND ADDICTION PROFESSIONAL EDUCATED pt THAT IT WAS NOT OK TO TALK TO STAFF THAT WAY. NEW BAG OF IVF INFUSING PER ORDER. pt DENIES ANY OTHER NEEDS AT THIS TIME. CALL LIGHT WITHIN REACH.
[2025-07-29] VITALS (11 sets, daily range): BP systolic 136–209; BP diastolic 61–122
--- NOTE | 2025-07-29 01:12 | NUR ---
CARE PROFESSIONAL OBTAINED VITALS AND I&O. PUREWICK CANNISTER EMPTIED. PT STATES NO NEEDS AT THIS TIME. CALL LIGHT WITHIN REACH AND BED ALARM ON.
--- NOTE | 2025-07-29 02:32 | NUR ---
pt RESTING IN THE BED WITH EYES CLOSED. RR EVEN AND UNLABORED. CALL LIGHT WITHIN REACH.
--- NOTE | 2025-07-29 03:26 | NUR ---
pt RESTING IN THE BED. pt TELE LEADS FIXED. pt DENIES ANY OTHER NEEDS AT THIS TIME. CALL LIGHT WITHIN REACH.
[2025-07-29 05:18] LABS: BASOPHILS 0.1 % (0.2-1.2); EOSINOPHILS 0.8 % (0.8-7.0); LYMPHOCYTES 4.4 % (21.8-53.1); MCH 29.3 PG (25.7-32.2); MCHC 32.6 g/dL (32.3-36.5); MCV 89.9 fL (79.0-92.2); MONOCYTES 5.8 % (5.3-12.2); NEUTROPHILS 88.0 % (34.0-67.9); RBC 3.96 M/uL (4.63-6.08)
[2025-07-29 05:26] LABS: GLOMERULAR FILTRATION RATE,EST 89.0 mL/min (>60); UREA NITROGEN 23.0 mg/dL (7-18)
--- NOTE | 2025-07-29 07:45 | NUR ---
RECEIVED REPORT FROM MATT LOPEZ. PT LAYING IN BED WITH EYES CLOSED, UNLABORED BREATHING. AT BEDSIDE, QUESTIONS ANSWERED. NEW BAG OF FLUIDS PLACED, NO OTHER NEEDS AT THIS TIME, CALL LIGHT IN REACH.
--- NOTE | 2025-07-29 10:05 | NUR ---
PHYSICAL THERAPY AT BEDSIDE ASSISTING PT TO STAND AT SIDE OF BED, CHUCKS CHANGED, BRIEF CHANGED. PT BACK TO BED D/T INABILITY TO GET TO CHAIR, NO OTHER NEEDS AT THIS TIME, CALL LIGHT IN REACH.
--- NOTE | 2025-07-29 10:12 | NUR ---
PATIENT IS IN BED AT THIS TIME, MINCING MACHINE OPERATOR CHARTED VITALS AND I&O'S, EMPTIED ANSHU CANISTER, IN ROOM, CALL LIGHT WITH IN REACH AND NOTHING ELSE NEEDED AT THIS TIME.
--- NOTE | 2025-07-29 10:32 | NUR ---
INTO SEE PATIENT AND . PLANS TO POTENTIALLY D/C TOMORROW MORNING. HELPED FIND A PCP IN [place] FOR PATIENT IN DISCHARGE. HOME HEALTH TO BE ORDERED THROUGH [facility].
[2025-07-29] MEDS ORDERED: POTASSIUM CHLORIDE 10 MEQ TABCR PO ONE (10:45)
--- NOTE | 2025-07-29 11:33 | NUR ---
HOME HEALTH ORDER FAXED TO [facility]
--- NOTE | 2025-07-29 13:20 | EKG ---
[facility] [address] [facility] [place], [place] [address] Signed Sinus rhythm with 1st degree AV block Left axis deviation Nonspecific intraventricular block Cannot rule out Septal infarct (cited on or before 27-JUL-2025) Marked ST abnormality, possible anterior subendocardial injury Abnormal ECG When compared with ECG of 27-JUL-2025 23:16, Serial changes of Septal infarct present Confirmed by LARRY HEADLEY MD ([id number]) on 07/29/2025 1:20:12 PM Electronically Signed By: LARRY HEADLEY 07/29/25 1320 PATIENT NAME: BECKIE GARDNER Electrocardiogram DATE OF : 48 PHYSICIAN: LARRY HEADLEY REPORT #: [id number] REPORT IS CONFIDENTIAL AND NOT TO BE RELEASED WITHOUT AUTHORIZATION
[2025-07-29] MEDS ORDERED: PHENAZOPYRIDINE HCL 100 MG TAB PO SCH (13:30)
--- NOTE | 2025-07-29 13:54 | NUR ---
PATIENT IS IN HIS BED AT THIS TIME, IS IN ROOM, GLOBAL COMPENSATION MANAGER CHARTED VITALS AND I&O'S, CALL LIGHT WITH IN REACH AND NOTHING ELSE NEEDED AT THIS TIME.
[2025-07-29] MEDS ORDERED: AMOX TR-K CLV1 EACH PO (14:37)
[2025-07-29] MEDS ORDERED: PYRIDIUM200 MG PO (14:37)
--- NOTE | 2025-07-29 15:19 | NUR ---
UPDATED ON PT EMESIS AND FAMILY'S REQUEST FOR ZOFRAN. STATES TO PLACE ORDER FOR 4MG IV ZOFRAN Q6 PRN. ORDER ENTERED, REPEAT BACK PERFORMED.
--- NOTE | 2025-07-29 16:42 | NUR ---
PT AND STATE THAT THEY WERE NOT ABLE TO REST WELL LAST NIGHT AND REQUEST "SOMETHING TO HELP SLEEP" FOR PT. MELATONIN HS PRN ORDERED. PT AND STATE NO FURTHER NEEDS AT THIS TIME, CALL LIGHT WITHIN REACH.
[2025-07-29] MEDS ORDERED: MELATONIN 3 MG TAB PO PRN (16:45)
--- NOTE | 2025-07-29 18:20 | NUR ---
THIS RN NOTIFIED BY MATT MARIN AND SHARON KAY THAT PT IS HYPERTENSIVE. THIS RN TO BEDSIDE, MANUAL BP TAKEN BY THIS RN WITH RESULT OF 190/110 (137). DR. HEADLEY CALLED BY THIS RN, UPDATED ON BP. MD STATES TO PLACE ORDER FOR HYDRALAZINE 10MG IV PRN FOR SYSTOLIC BP OF >160. THIS RN REQUESTS FREQUENCY FOR MEDICATION ORDER AND MD STATES, "JUST PRN FOR SYSTOLIC BLOOD PRESSURE OVER 160". ORDER ENTERED, REPEAT BACK PERFORMED.
--- NOTE | 2025-07-29 19:15 | NUR ---
REPORT RECEIVED FROM MAUREEN GUTIERREZ. pt RESTING IN THE BED. BOARD UPDATED. pt SWINGING FEET OUT OF BED STATING HE HAS TO PEE THIS RN REMINDED pt HE HAS THE PURE WICK AND CAN GO AT ANY TIME. pt AGREED AND STARTED PEEING. pt DENIES ANY OTHER NEEDS AT THIS TIME. pt PULLED OF TELE LEADS. TELE LEADS PUT BACK ON. CALL LIGHT WITHIN REACH.
[2025-07-29] MEDS ORDERED: METOPROLOL TARTRATE 100 MG TAB PO SCH (20:30)
--- NOTE | 2025-07-29 21:20 | NUR ---
PT STATED THAT PT UNABLE TO HAVE BM. THIS CIRCUS ROUSTABOUT AND MATT LABOY REMVOED BED GARCIA AND CHANGED PT DRAW SHEET, CHUCKS PAD AND BRIEF. TELE PLACED BACK ON PT. PT BOOSTED AND REPOSTIONED IN BED. CIRCUS ROUSTABOUT OBTAINED PT BLOOD SUGAR AND MATT LOPEZ NOTIFIED. PT STATES NO FURTHER NEEDS AT THIS TIME. CALL LIGHT WITHIN REACH AND IN ROOM.
--- NOTE | 2025-07-29 21:35 | NUR ---
ASSESSMENT AND VITAL SIGNS DONE. pt REMINDED SEVERAL TIMES THAT HE CAN PEE IN THE PURE WICK AND IT WILL TAKE IT AWAY TO THE WALL. pt TELE LEADS PUT BACK ON pt. THIS RN CALL MD WITH UPDATE ABOUT BP PER MD VERBAL ORDER. MD PLACE NEW ORDERS FOR MEDS AND THIS RN VERIFIED WITH REPEAT BACK METHOD. SCHEDULED AND PRN MEDS ADMINISTERED. WATER REFRESHED. AT BED SIDE. pt DENIES ANY OTHER NEEDS AT THIS TIME. CALL LIGHT WITHIN REACH.
--- NOTE | 2025-07-29 22:15 | NUR ---
THIS RN CALLED TO SEE IF pt CAN BE TAKEN OFF DUE TO pt CONSTANTLY TAKING TELE OFF. DC'D TELE. pt RESTING IN THE BED ON RIGHT SIDE. pt DENIES ANY NEEDS AT THIS TIME. CALL LIGHT WITHIN REACH.
--- NOTE | 2025-07-29 23:40 | NUR ---
IN RM TO CHECK ON pt. pt HAD PULLED OFF PUREWICK. THIS RN AND SHEET TAILER RALPH CHANGED PUREWICK AND BRIEF AND REPOSITIONED pt TO LEFT SIDE. pt DENIES ANY OTHER NEEDS AT THIS TIME. CALL LIGHT WITHIN REACH.
--- NOTE | 2025-07-30 00:12 | NUR ---
IN RM FOR ALARMING IV. NEW BAG OF IVF INFUSING PER ORDER. pt DENIES ANY OTHER NEEDS AT THIS TIME. CALL LIGHT WITHIN REACH.
--- NOTE | 2025-07-30 01:10 | NUR ---
IN RM TO CHECK ON pt. pt HAD HAND ON PUREWICK. THIS RN REMINDED pt TO KEEP THE PUREWICK ON. pt COVERED BACK UP AND WARM BLANKET PROVIDED. pt DENIES ANY OTHER NEEDS AT THIS TIME. CALL LIGHT WITHIN REACH.
--- NOTE | 2025-07-30 02:04 | NUR ---
IN RM FOR ALARMING IV. DISTAL OCCLUSION. IV INFUSING PER ORDER. pt DENIES ANY NEEDS AT THIS TIME. CALL LIGHT WITHIN REACH.
--- NOTE | 2025-07-30 03:20 | NUR ---
pt RESTING IN THE BED WITH EYES CLOSED. RR EVEN AND UNLABORED. CALL LIGHT WITHIN REACH.
--- NOTE | 2025-07-30 04:36 | NUR ---
pt RESTING IN THE BED WITH EYES CLOSED. RR EVEN AND UNLABORED. CALL LIGHT WITHIN REACH.
[2025-07-30 05:17] VITALS: BP 160/92
[2025-07-30 05:19] VITALS: BP 160/92
--- NOTE | 2025-07-30 05:54 | NUR ---
pt CALLED TO USE BED GARCIA. VITAL SIGNS AND ASSESSMENT DONE. pt PLACED ON BED GARCIA. NO OTHER NEEDS AT THIS TIME. CALL LIGHT WITHIN REACH. PURE WICK STILL IN PLACE.
--- NOTE | 2025-07-30 07:32 | NUR ---
RECEIVED REPORT FROM MATT LOPEZ. PATIENT RESTING IN BED, REPORTS HE IS DOING GOOD AND HAS NO NEEDS AT THIS TIME. CALL LIGHT IN REACH, AT BEDSIDE, WHITEBOARD UPDATED.
--- NOTE | 2025-07-30 07:44 | NUR ---
PATIENT IN BED AT THIS TIME. FINISH REMOVER CHARTED HOURLY ROUNDS AND BLOOD SUGAR. CALL LIGHT WITHIN REACH, NO FURTHER NEEDS.
[2025-07-30] MEDS ORDERED: TRAMADOL HCL 50 MG TAB PO ONE (08:45)
--- NOTE | 2025-07-30 10:30 | NUR ---
PT TO BEDSIDE COMMODE WITH PHYSICAL THERAPY, BACK TO BED. DISCHARGE PACKET WENT OVER WITH PATIENT AND SPOUSE, QUESTIONS ANSWERED. DC PACKET SIGNED AND DC MATERIAL GIVEN TO PT AND SPOUSE. NO OTHER NEEDS AT THIS TIME, CALL LIGHT IN REACH.
[2025-07-30 11:34] VITALS: BP 129/71
[2025-07-30 11:36] VITALS: BP 129/71
--- NOTE | 2025-07-30 11:36 | NUR ---
PATIENT IN BED AT THIS TIME. COIL MAKER CHARTED VITALS AND I&O'S. CALL LIGHT WITHIN REACH, NO FURTHER NEEDS.
[2025-07-30 12:45] VITALS: BP 142/81
--- NOTE | 2025-07-30 13:09 | NUR ---
PT DRESSED IN OWN CLOTHES, VSS, IV REMOVED, CATHETER TIP INTACT. PURWICK ALSO REMOVED, PT GIVEN ZOFRAN FOR NAUSEA AND TRAMADOL PER ORDER. DC PACKET GIVEN TO SPOUSE. PT WHEELCHAIRED TO FRONT OF BUILDING WITH ALL PERSONAL BELONGINGS.
[2025-07-30 13:54] VITALS: BP 142/81
== END 2025-07-30 13:09 | disposition home or self-care (01) | DRG 871 ==
LOC: ED 23:04 → MS 23:06
PROVIDERS: Family Medicine; ADMIT Internal Medicine; ATTEND Internal Medicine
DX: A41.9 Sepsis, unspecified organism (principal); G93.41 Metabolic encephalopathy; N39.0 Urinary tract infection, site not specified; N17.9 Acute kidney failure, unspecified; I25.10 Atherosclerotic heart disease of native coronary artery without angina pectoris; E78.00 Pure hypercholesterolemia, unspecified; F03.90 Unspecified dementia, unspecified severity, without behavioral disturbance, psychotic disturbance, mood disturbance, and anxiety; E83.42 Hypomagnesemia; E11.9 Type 2 diabetes mellitus without complications; Z66 Do not resuscitate; E03.9 Hypothyroidism, unspecified; Z95.1 Presence of aortocoronary bypass graft; Z95.0 Presence of cardiac pacemaker; I48.91 Unspecified atrial fibrillation; Z88.5 Allergy status to narcotic agent; Z88.8 Allergy status to other drugs, medicaments and biological substances; Z91.030 Bee allergy status; Z86.73 Personal history of transient ischemic attack (TIA), and cerebral infarction without residual deficits; M10.9 Gout, unspecified; Z87.19 Personal history of other diseases of the digestive system; I11.0 Hypertensive heart disease with heart failure; I50.9 Heart failure, unspecified; Z90.49 Acquired absence of other specified parts of digestive tract; Z98.890 Other specified postprocedural states; Z96.82 Presence of neurostimulator; Z79.899 Other long term (current) drug therapy; Z79.82 Long term (current) use of aspirin; Z79.84 Long term (current) use of oral hypoglycemic drugs; Z79.890 Hormone replacement therapy
CPT/HCPCS: 36415; 71045; 80048; 80053; 81001; 83735; 85025; 87088; 93005; 93010; 96365; 96367; 96375; 97163; 97167; 97530; 99285-25; A9270; J0360; J0696; J1815; J2405; J3475; J7030